=== PATIENT | female | born 1980 | race African-American/Black ===

== ENCOUNTER 2017-06-16 10:12 | Inpatient (IN) | payer OTHER ==
[2017-06-16 10:25] VITALS: BMI 22.6
--- NOTE | 2017-06-16 13:56 | HP ---
COWS - Scale Resting Pulse: 0= [place] 80 or Below Sweatin= Chills/Flushing Restless Observation: 3= Extraneous Movement Pupil Size: 1= Pupils >than Normal Bone or Joint Aches: 2= Severe Diffuse Aches Runny Nose/ Eye Tearin= Runny Nose/Eyes GI Upset > 30mins: 3= Vomiting/Diarrhea Tremor Observation: 2= Slight Tremor Visible Yawning Observation: 1= 1-2x During Session Anxiety or Irritability: 2=Irritable/Anxious Goose Flesh Skin: 0=Smooth Skin COWS Score: 17 Admission ROS S - HPI Chief Complaint: i need help to stop using heroin and crack Allergies/Adverse Reactions: Allergies Allergy/AdvReac Type Severity Reaction Status Date / Time No Known Allergies Allergy Verified 06/16/17 11:40 History of Present Illness: this 37 years old female with heroin and crack dependence seeking detox, withdrawal symptom,has been in outpatient program,non compliance with suboxone,did not follow up with [facility] redness of conjunctiva with discharge for 3 days no dm,no htn,no hepatitis c weight loss longest sobriety 5 months - Ebola screening Have you traveled outside of the country in the last 21 days: No Have you had contact with anyone from an Ebola affected area: No Have you been sick,other than usual withdrawal symptoms: No Do you have a fever: No - Review of Systems Constitutional: Chills, Loss of Appetite, Malaise, Night Sweats, Changes in sleep, Weakness, Unintentional Wgt. Loss EENT: reports: Tearing (redness of conjunctive with yellowish discharge), Nose Congestion Respiratory: reports: No Symptoms reported Cardiac: reports: No Symptoms Reported GI: reports: Nausea, Vomiting, Abdominal cramping : reports: No Symptoms Reported Musculoskeletal: reports: Back Pain, Joint Pain, Muscle Pain, Joint Stiffness Integumentary: reports: Dryness Neuro: reports: Headache, Tremors Endocrine: reports: No Symptoms Reported Hematology: reports: No Symptoms Reported Psychiatric: reports: No Sypmtoms Reported, Judgement Intact, Mood/Affect Appropiate Other Systems: Reviewed and Negative Patient History - Patient Medical History Hx Anemia: No Hx Asthma: No Hx Chronic Obstructive Pulmonary Disease (COPD): No Hx Cancer: No Hx Cardiac Disorders: No Hx Congestive Heart Failure: No Hx Hypertension: No Hx Hypercholesterolemia: No Hx Pacemaker: No HX Cerebrovascular Accident: No Hx Seizures: No Hx Dementia: No Hx Diabetes: No Hx Gastrointestinal Disorders: No Hx Liver Disease: No Hx Genitourinary Disorders: No Hx Sexually Transmitted Disorders: No Hx Renal Disease (ESRD): No Hx Thyroid Disease: No Hx Human Immunodeficiency Virus (HIV): No (04/27 last negative) Hx Hepatitis C: No Hx Depression: No Hx Suicide Attempt: No Hx Bipolar Disorder: No Hx Schizophrenia: No Other Medical History: no suicidal,no homicidal - Patient Surgical History Past Surgical History: No - PPD History Previous Implant?: Yes Documented Results: Negative w/o proof Implanted On Prior [facility] Admission?: No PPD to be Administered?: Yes - Reproductive History Patient is a Female of Child Bearing Age (11 -55 yrs old): Yes Last Menstrual Period: 06/02/17 Patient : No - Smoking Cessation Smoking history: Current every day smoker Have you smoked in the past 12 months: Yes Aproximately how many cigarettes per day: 10 Hx Chewing Tobacco Use: No Initiated information on smoking cessation: Yes 'Breaking Loose' booklet given: 06/16/17 - Substance & Tx. History Hx Alcohol Use: No Hx Substance Use: Yes Substance Use Type: Cocaine, Heroin Hx Substance Use Treatment: No - Substances Abused Heroin Route: Inhalation Frequency: Daily Amount used: 10 BAGS Age of first use: 30 Date of Last Use: 06/16/17 Crack Route: Smoking Frequency: Daily Amount used: $50 Age of first use: 30 Date of Last Use: 06/16/17 Family Disease History - Family Disease History Family Disease History: Other: Father (use heroin), Mother (uses heroin), Brother (two, healthy), Son (one age 16 - history) Admission Physical Exam BHS - Vital Signs Vital Signs: Vital Signs - 24 hr 06/16/17 10:23 Temperature 99.0 F Pulse Rate 76 Respiratory 18 Rate Blood Pressure 124/80 - Physical General Appearance: Yes: Moderate Distress, Tremorous, Irritable, Sweating, Anxious HEENTM: Yes: Pharynx Normal, Other (redness of conjunctiva with yellowish discharge) Respiratory: Yes: Lungs Clear, Normal Breath Sounds, No Respiratory Distress Neck: Yes: Supple, Trachea in good position, Thyroid tenderness Breast: Yes: Breast Exam Deferred Cardiology: Yes: Within Normal Limits, Regular Rhythm, Regular Rate, S1, S2 Abdominal: Yes: Within Normal Limits, Normal Bowel Sounds, Soft Genitourinary: Yes: Within Normal Limits Back: Yes: Muscle Spasm Musculoskeletal: Yes: full range of Motion, Back pain, Joint Stiffness, Muscle Pain Extremities: Yes: Tremors Neurological: Yes: manufacturing chief engineer II-XII NML intact, Fully Oriented, Alert, Motor Strength 5/5 Integumentary: Yes: Dry Lymphatic: Yes: Within Normal Limits - Diagnostic (1) Opioid dependence with withdrawal Current Visit: Yes Status: Acute (2) Cocaine dependence Current Visit: No Status: Chronic Qualifiers: Substance use status: uncomplicated Qualified Code(s): F14.20 - Cocaine dependence, uncomplicated (3) Nicotine dependence Current Visit: No Status: Chronic Cleared for Admission [facility] - Detox or Rehab [facility] Level of Care: Medically Managed Detox Regimen/Protocol: Methadone [facility] Breath Alcohol Content Breath Alcohol Content: 0 Urine Pregancy Test - Result Urine Test Results: Negative- NO Line Present Urine Drug Screen - Results Drug Screen Negative: No Urine Drug Screen Results: CONSUELO-Cocaine, OPI-Opiates
[2017-06-16] MEDS ORDERED: hydrOXYzine PAMOATE 25 MG CAPSULE (FP) PO PRN (14:18)
[2017-06-16] MEDS ORDERED: ACETAMINOPHEN 325 MG TABLET (FP) PO PRN (14:18)
[2017-06-16] MEDS ORDERED: MAGNESIUM CITRATE 300 ML BOTTLE PO PRN (14:18)
[2017-06-16] MEDS ORDERED: LOPERAMIDE HCL 2 MG CAPSULE PO PRN (14:18)
[2017-06-16] MEDS ORDERED: IBUPROFEN 400 MG TABLET (FP) PO PRN (14:18)
[2017-06-16] MEDS ORDERED: MAG HYDROX/AL HYDROX/SIMETH 30 ML UNIT-DOSE CUP PO PRN (14:18)
[2017-06-16] MEDS ORDERED: guaiFENesin/D-METHORPHAN HB 10 ML UNIT-DOSE CUPS PO PRN (14:18)
[2017-06-16] MEDS ORDERED: MAGNESIUM HYDROX 2400MG/30ML ORAL SUSPENSION 30 ML CUP PO PRN (14:18)
[2017-06-16] MEDS ORDERED: MENTHOL/PHENOL 1 EACH UD MM PRN (14:18)
[2017-06-16] MEDS ORDERED: P-EPHED 60MG/TRIPROLIDI 2.5MG TABLET PO PRN (14:18)
[2017-06-16] MEDS ORDERED: METHADONE HCL 10 MG TABLET (FOR DETOX USE ONLY) PO ONE ×2 (15:00→23:00)
[2017-06-16] MEDS ORDERED: METHADONE HCL 10 MG TABLET (FOR DETOX USE ONLY) ONE (18:37)
[2017-06-16] MEDS: diazePAM 5 MG TABLET PO PRN (19:15)
[2017-06-16] MEDS: NICOTINE 21 MG/24 HOURS TOPICAL PATCH TD SCH (19:24)
[2017-06-16] MEDS: CIPROFLOXACIN HCL 0.3% OPHTH 2.5ML BOTTLE OU SCH ×2 (20:35→22:18)
[2017-06-16] MEDS ORDERED: MELATONIN 5 MG TABLETS PO PRN (22:00)
[2017-06-16] MEDS: THIAMINE HCL 100 MG TABLET (FP) PO SCH (22:17)
[2017-06-16 23:19] LABS: URINE APPEARANCE SLCLOUDY; URINE BILIRUBIN NEGATIVE (<2.0 mg/dL); URINE COLOR YELLOW; URINE GLUCOSE (UA) NEGATIVE (NEGATIVE); URINE KETONE NEGATIVE (NEGATIVE); URINE NITRITE NEGATIVE (NEGATIVE); URINE PROTEIN NEGATIVE (NEGATIVE); URINE UROBILINOGEN NEGATIVE mg/dL (0.2-1.0)
[2017-06-16 23:20] LABS: URINE LEUK ESTERASE 1+ (NEGATIVE)
[2017-06-16 23:23] LABS: EPI CELLS FEW /HPF (FEW); URINE MUCUS RARE
[2017-06-17] MEDS: CIPROFLOXACIN HCL 0.3% OPHTH 2.5ML BOTTLE OU SCH ×5 (06:20→22:10)
--- NOTE | 2017-06-17 09:36 | CONSULT ---
[facility] Psychiatric Consult - Data Date of interview: 06/17/17 Admission source: [facility] Identifying data: Patient is a 37 year old single female, domiciled, mother of one, unemployed but receiving public assistance. This is one of multiple admissions for patient. Pt. admitted to for opiate and cocaine dependence. Substance Abuse History: Following information confirmed with Ms. Wilson: - Smoking Cessation. Smoking history: Current every day smoker. Have you smoked in the past 12 months: Yes. Aproximately how many cigarettes per day: 10. Hx Chewing Tobacco Use: No. Initiated information on smoking cessation: Yes. ' Breaking Loose' booklet given: 06/16/17. - Substance & Tx. History. Hx Alcohol Use: No. Hx Substance Use: Yes. Substance Use Type: Cocaine, Heroin. Hx Substance Use Treatment: No. - Substances Abused. Heroin. Route: Inhalation. Frequency: Daily. Amount used: 10 BAGS. Age of first use: 30. Date of Last Use: 06/16/17. Crack. Route: Smoking. Frequency: Daily. Amount used: $50. Age of first use: 30. Date of Last Use: 06/16/17 Medical History: Denies. Psychiatric History: Patient denies h/o psychiatric hospitalizations, outpatient care, and suicide attempt. Physical/Sexual Abuse/Trauma History: Denies. Mental Status Exam - Mental Status Exam Alert and Oriented to: Time, Place, Person Cognitive Function: Good Patient Appearance: Well Groomed Mood: Withdrawn, Irritable Affect: Mood Congruent Patient Behavior: Fatigued, Asleep (Patient able to be awaken to complete interview. ) Speech Pattern: Delayed Voice Loudness: Moderately Soft/Quiet Thought Process: Intact, Goal Oriented Thought Disorder: Not Present Hallucinations: Denies Suicidal Ideation: Denies Homicidal Ideation: Denies Insight/Judgement: Poor Sleep: Poorly Appetite: Fair Muscle strength/Tone: Normal Gait/Station: Other (Did not observe patient's gait.) Psychiatric Findings - Problem List ([place] 1, 2,3) (1) Opioid dependence with withdrawal Current Visit: Yes Status: Acute (2) Cocaine dependence Current Visit: Yes Status: Chronic Qualifiers: Substance use status: uncomplicated Qualified Code(s): F14.20 - Cocaine dependence, uncomplicated (3) Nicotine dependence Current Visit: Yes Status: Chronic (4) Insomnia Current Visit: Yes Status: Acute - Initial Treatment Plan Initial Treatment Plan: Psychoeducation provided. Detoxification in progress. Ambien 5mg qhs prn ordered for insomnia. Pt made aware of the risk of parasomnia. Verbal consent given. Will continue to monitor.
--- NOTE | 2017-06-17 09:52 | EKG ---
Test Reason : Blood Pressure : / mmHG Vent. Rate : 062 BPM Atrial Rate : 062 BPM P-R Int : 128 ms QRS Dur : 080 ms QT Int : 404 ms P-R-T Axes : 064 055 034 degrees QTc Int : 410 ms NORMAL SINUS RHYTHM NORMAL ECG NO PREVIOUS ECGS AVAILABLE Confirmed by MD Shlomo, Antonio ([id number]) on 06/17/2017 9:52:17 AM Referred By: Confirmed By:Antonio Keenan MD
[2017-06-17] MEDS ORDERED: METHADONE HCL 10 MG TABLET (FOR DETOX USE ONLY) PO ONE (10:00)
[2017-06-17 10:01] LABS: HEMATOCRIT 35.6 % (32.4-45.2); HEMOGLOBIN 12.1 GM/dL (10.7-15.3); MCHC 33.9 g/dl (32.0-36.0); MEAN CELL VOLUME 91.5 fl (80-96); MEAN PLT VOLUME 8.5 fl (7.5-11.1); PLATELET COUNT 279 K/MM3 (134-434); RBC 3.89 M/mm3 (3.60-5.2); RDW 12.4 % (11.6-15.6); WHITE BLOOD COUNT 5.3 K/mm3 (4.0-10.0)
[2017-06-17 10:04] LABS: CHLORIDE 107 mmol/L (98-107); POTASSIUM 4.9 mmol/L (3.5-5.1); SODIUM 141 mmol/L (136-145)
[2017-06-17] MEDS: PRENATAL VITAMINS W/ FOLIC ACID TABLET (FP) PO SCH (10:15)
[2017-06-17] MEDS: diazePAM 5 MG TABLET PO PRN ×2 (10:15→22:09)
[2017-06-17] MEDS: NICOTINE 21 MG/24 HOURS TOPICAL PATCH TD SCH (10:16)
[2017-06-17 10:55] LABS: ALBUMIN 3.7 g/dl (3.4-5.0); ALK PHOS 54 U/L (45-117); ANION GAP 5 (8-16); BILIRUBIN,TOTAL 0.5 mg/dL (0.2-1.0); BLOOD UREA NITROGEN 6 mg/dL (7-18); CALCIUM 8.8 mg/dL (8.5-10.1); CO2 29 mmol/L (21-32); GLUCOSE,RANDOM 84 mg/dL (74-106); SGOT/AST 19 U/L (15-37); SGPT/ALT 22 U/L (12-78); TOT PROT 6.8 g/dl (6.4-8.2)
--- NOTE | 2017-06-17 11:02 | PN ---
BHS COWS - Scale Resting Pulse: 0= [place] 80 or Below Sweatin= Chills/Flushing Restless Observation: 1= Difficult to Sit Still Pupil Size: 1= Pupils >than Normal Bone or Joint Aches: 2= Severe Diffuse Aches Runny Nose/ Eye Tearin= Runny Nose/Eyes GI Upset > 30mins: 2= Nausea/Diarrhea Tremor Observation of Outstretched Hands: 2= Slight Tremor Visible Yawning Observation: 2= >3x During Session Anxiety or Irritability: 2=Irritable/Anxious Goose Flesh Skin: 0=Smooth Skin COWS Score: 15 S Progress Note (SOAP) Subjective: joint pain body aches gi distress sweat tremor Objective: 06/17/17 10:59 Vital Signs Temperature 98.1 F 06/17/17 09:35 Pulse Rate 61 06/17/17 09:35 Respiratory Rate 20 06/17/17 09:35 Blood Pressure 113/55 06/17/17 09:35 O2 Sat by Pulse Oximetry (%) Laboratory Last Values WBC 5.3 K/mm3 (4.0-10.0) 06/17/17 06:00 RBC 3.89 M/mm3 (3.60-5.2) 06/17/17 06:00 Hgb 12.1 GM/dL (10.7-15.3) 06/17/17 06:00 Hct 35.6 % (32.4-45.2) 06/17/17 06:00 MCV 91.5 fl (80-96) 06/17/17 06:00 MCH 31.0 pg (25.7-33.7) 06/17/17 06:00 MCHC 33.9 g/dl (32.0-36.0) 06/17/17 06:00 RDW 12.4 % (11.6-15.6) 06/17/17 06:00 Plt Count 279 K/MM3 (134-434) 06/17/17 06:00 MPV 8.5 fl (7.5-11.1) 06/17/17 06:00 Sodium 141 mmol/L (136-145) 06/17/17 06:00 Potassium 4.9 mmol/L (3.5-5.1) 06/17/17 06:00 Chloride 107 mmol/L (98-107) 06/17/17 06:00 Carbon Dioxide 29 mmol/L (21-32) 06/17/17 06:00 Anion Gap 5 (8-16) L 06/17/17 06:00 BUN 6 mg/dL (7-18) L 06/17/17 06:00 Creatinine 1.0 mg/dL (0.55-1.02) 06/17/17 06:00 Creat Clearance w eGFR > 60 (>60) 06/17/17 06:00 Random Glucose 84 mg/dL (74-106) 06/17/17 06:00 Calcium 8.8 mg/dL (8.5-10.1) 06/17/17 06:00 Total Bilirubin 0.5 mg/dL (0.2-1.0) 06/17/17 06:00 AST 19 U/L (15-37) 06/17/17 06:00 ALT 22 U/L (12-78) 06/17/17 06:00 Alkaline Phosphatase 54 U/L (45-117) 06/17/17 06:00 Total Protein 6.8 g/dl (6.4-8.2) 06/17/17 06:00 Albumin 3.7 g/dl (3.4-5.0) 06/17/17 06:00 Urine Color Yellow 06/16/17 18:17 Urine Appearance Slcloudy 06/16/17 18:17 Urine pH 6.0 (5.0-8.0) 06/16/17 18:17 Ur Specific [place] 1.020 (1.001-1.035) 06/16/17 18:17 Urine Protein Negative (NEGATIVE) 06/16/17 18:17 Urine Glucose (UA) Negative (NEGATIVE) 06/16/17 18:17 Urine Ketones Negative (NEGATIVE) 06/16/17 18:17 Urine Blood 1+ (NEGATIVE) H 06/16/17 18:17 Urine Nitrite Negative (NEGATIVE) 06/16/17 18:17 Urine Bilirubin Negative (<2.0 mg/dL) 06/16/17 18:17 Urine Urobilinogen Negative mg/dL (0.2-1.0) 06/16/17 18:17 Ur Leukocyte Esterase 1+ (NEGATIVE) H 06/16/17 18:17 Urine WBC (Auto) 27 /hpf (3-5) 06/16/17 18:17 Urine RBC (Auto) 15 /hpf (0-3) 06/16/17 18:17 Ur Epithelial Cells Few /HPF (FEW) 06/16/17 18:17 Urine Mucus Rare 06/16/17 18:17 lab noted repeat ua Assessment: 06/17/17 11:01 withdrawal sx Plan: continue detox
[2017-06-17] MEDS ORDERED: ZOLPIDEM TARTRATE 5 MG TABLET PO PRN (22:00)
[2017-06-17] MEDS: THIAMINE HCL 100 MG TABLET (FP) PO SCH (22:09)
[2017-06-18 00:38] LABS: URINE APPEARANCE TURBID; URINE BILIRUBIN NEGATIVE (<2.0 mg/dL); URINE COLOR AMBER; URINE GLUCOSE (UA) NEGATIVE (NEGATIVE); URINE KETONE NEGATIVE (NEGATIVE); URINE LEUK ESTERASE 1+ (NEGATIVE); URINE NITRITE NEGATIVE (NEGATIVE); URINE PROTEIN NEGATIVE (NEGATIVE)
[2017-06-18 00:44] LABS: EPI CELLS MANY /HPF (FEW); URINE BACTERIA MANY /hpf (NONE SEEN); URINE MUCUS RARE
[2017-06-18] MEDS: CIPROFLOXACIN HCL 0.3% OPHTH 2.5ML BOTTLE OU SCH ×5 (06:48→22:16)
[2017-06-18] MEDS ORDERED: METHADONE HCL 5 MG TABLET (FOR DETOX USE ONLY) PO ONE (10:00)
[2017-06-18] MEDS: PRENATAL VITAMINS W/ FOLIC ACID TABLET (FP) PO SCH (10:27)
[2017-06-18] MEDS: diazePAM 5 MG TABLET PO PRN ×3 (10:27→20:17)
--- NOTE | 2017-06-18 10:53 | PN ---
BHS COWS - Scale Resting Pulse: 0= [place] 80 or Below Sweatin= Chills/Flushing Restless Observation: 1= Difficult to Sit Still Pupil Size: 1= Pupils >than Normal Bone or Joint Aches: 2= Severe Diffuse Aches Runny Nose/ Eye Tearin= Nasal Congestion GI Upset > 30mins: 1= Stomach Cramp Tremor Observation of Outstretched Hands: 2= Slight Tremor Visible Yawning Observation: 2= >3x During Session Anxiety or Irritability: 2=Irritable/Anxious Goose Flesh Skin: 0=Smooth Skin COWS Score: 13 BHS Progress Note (SOAP) Subjective: joint pain body ache sweat tremor anxiety scratch self with nails Objective: 06/18/17 10:53 Vital Signs Temperature 98.2 F 06/18/17 09:17 Pulse Rate 58 L 06/18/17 09:17 Respiratory Rate 17 06/18/17 09:17 Blood Pressure 120/71 06/18/17 09:17 O2 Sat by Pulse Oximetry (%) Laboratory Last Values WBC 5.3 K/mm3 (4.0-10.0) 06/17/17 06:00 RBC 3.89 M/mm3 (3.60-5.2) 06/17/17 06:00 Hgb 12.1 GM/dL (10.7-15.3) 06/17/17 06:00 Hct 35.6 % (32.4-45.2) 06/17/17 06:00 MCV 91.5 fl (80-96) 06/17/17 06:00 MCH 31.0 pg (25.7-33.7) 06/17/17 06:00 MCHC 33.9 g/dl (32.0-36.0) 06/17/17 06:00 RDW 12.4 % (11.6-15.6) 06/17/17 06:00 Plt Count 279 K/MM3 (134-434) 06/17/17 06:00 MPV 8.5 fl (7.5-11.1) 06/17/17 06:00 Sodium 141 mmol/L (136-145) 06/17/17 06:00 Potassium 4.9 mmol/L (3.5-5.1) 06/17/17 06:00 Chloride 107 mmol/L (98-107) 06/17/17 06:00 Carbon Dioxide 29 mmol/L (21-32) 06/17/17 06:00 Anion Gap 5 (8-16) L 06/17/17 06:00 BUN 6 mg/dL (7-18) L 06/17/17 06:00 Creatinine 1.0 mg/dL (0.55-1.02) 06/17/17 06:00 Creat Clearance w eGFR > 60 (>60) 06/17/17 06:00 Random Glucose 84 mg/dL (74-106) 06/17/17 06:00 Calcium 8.8 mg/dL (8.5-10.1) 06/17/17 06:00 Total Bilirubin 0.5 mg/dL (0.2-1.0) 06/17/17 06:00 AST 19 U/L (15-37) 06/17/17 06:00 ALT 22 U/L (12-78) 06/17/17 06:00 Alkaline Phosphatase 54 U/L (45-117) 06/17/17 06:00 Total Protein 6.8 g/dl (6.4-8.2) 06/17/17 06:00 Albumin 3.7 g/dl (3.4-5.0) 06/17/17 06:00 Urine Color [place] 06/17/17 14:00 Urine Appearance Turbid 06/17/17 14:00 Urine pH 5.0 (5.0-8.0) 06/17/17 14:00 Ur Specific [place] 1.025 (1.001-1.035) 06/17/17 14:00 Urine Protein Negative (NEGATIVE) 06/17/17 14:00 Urine Glucose (UA) Negative (NEGATIVE) 06/17/17 14:00 Urine Ketones Negative (NEGATIVE) 06/17/17 14:00 Urine Blood Negative (NEGATIVE) 06/17/17 14:00 Urine Nitrite Negative (NEGATIVE) 06/17/17 14:00 Urine Bilirubin Negative (<2.0 mg/dL) 06/17/17 14:00 Urine Urobilinogen 2.0 mg/dL (0.2-1.0) H 06/17/17 14:00 Ur Leukocyte Esterase 1+ (NEGATIVE) H 06/17/17 14:00 Urine WBC (Auto) 26 /hpf (3-5) 06/17/17 14:00 Urine RBC (Auto) 7 /hpf (0-3) 06/17/17 14:00 Ur Epithelial Cells Many /HPF (FEW) 06/17/17 14:00 Urine Bacteria Many /hpf (NONE SEEN) 06/17/17 14:00 Urine Mucus Rare 06/17/17 14:00 RPR Titer Nonreactive (NONREACTIVE) 06/17/17 06:00 HIV 1&2 Antibody Screen Preliminary positive 06/16/17 14:00 HIV P24 Antigen Negative 06/16/17 14:00 lab noted 06/18/17 10:54 uti Assessment: 06/18/17 10:54 withdrawal sx uti Plan: continue detox bactrim ds bid
[2017-06-18] MEDS: NICOTINE 21 MG/24 HOURS TOPICAL PATCH TD SCH (11:19)
[2017-06-18] MEDS: BACITRACIN 0.9 GM PACKET TP SCH ×3 (13:19→22:48)
[2017-06-18] MEDS: SULFAMETHOXAZOLE/TRIMETHOPRIM 800MG/160MG D.S. TABLET PO SCH ×2 (13:19→22:16)
--- NOTE | 2017-06-18 13:59 | PN ---
Psychiatric Progress Note Vital Signs: Vital Signs Period Temp Pulse Resp BP Sys/Sheth Pulse Ox Last 24 Hr 97.2 F-99.7 F 52-80 16-18 112-147/52-76 Date of Session: 06/18/17 Chief Complaint:: "I have really bad anxiety and i can't sleep." HPI: Pt. admitted to for opiate and cocaine dependence ROS: Unremarkable. Current Medications: Active Medications Generic Name Dose Route Start Last Admin Trade Name Simi PRN Reason Stop Dose Admin Acetaminophen 650 mg 06/16/17 14:18 Tylenol - PO Q4H PRN FEVER Al Hydroxide/Mg Hydroxide 30 ml 06/16/17 14:18 Mylanta Oral Suspension - PO Q6H PRN DYSPEPSIA Bacitracin 0.9 gm 06/18/17 14:00 06/18/17 13:19 Bacitracin - TP 0.9 gm QID JANIS Administration Ciprofloxacin 2 drop 06/16/17 18:00 06/18/17 13:21 Ciloxan 0.3% Eye Drops - OU 2 drop Q4HWA JANIS Administration Diazepam 10 mg 06/16/17 14:18 06/18/17 10:27 Valium - PO 06/19/17 14:17 10 mg Q4H PRN Administration WITHDRAWAL(CONT SUBST) Eucalyptus/Menthol/Phenol/Sorbitol 1 each 06/16/17 14:18 Cepastat Lozenge - MM Q4H PRN SORE THROAT Guaifenesin 10 ml 06/16/17 14:18 Robitussin Dm - PO Q6H PRN COUGH Hydroxyzine Pamoate 25 mg 06/16/17 14:18 06/18/17 13:54 Vistaril - PO 25 mg Q4H PRN Administration AGITATION Ibuprofen 400 mg 06/16/17 14:18 Motrin - PO Q6H PRN PAIN LEVEL 4-6 Loperamide HCl 4 mg 06/16/17 14:18 Imodium - PO Q6H PRN DIARRHEA Magnesium Citrate 300 ml 06/16/17 14:18 Citroma - PO Q48H PRN CONSTIPATION Magnesium Hydroxide 30 ml 06/16/17 14:18 Milk Of Magnesia - PO DAILY PRN CONSTIPATION Methadone HCl 5 mg 06/21/17 06:00 Dolophine - PO 06/21/17 06:01 ONCE@0600 ONE Methadone HCl 15 mg 06/19/17 10:00 Dolophine - PO 06/19/17 10:01 ONCE ONE Methadone HCl 10 mg 06/20/17 10:00 Dolophine - PO 06/20/17 10:01 ONCE ONE Nicotine 21 mg 06/16/17 15:00 06/18/17 11:19 Nicoderm Patch - TD Not Given DAILY JANIS Multivit/Folic Acid/Iron 1 tab 06/17/17 10:00 06/18/17 10:27 Vitamins ([facility]) - PO 1 tab DAILY JANIS Administration Pseudoephedrine/Triprolidine 1 combo 06/16/17 14:18 Actifed - PO TID PRN NASAL CONGESTION Thiamine HCl 100 mg 06/16/17 22:00 06/17/17 22:09 Vitamin B1 - PO 100 mg HS JANIS Administration Trimethoprim/Sulfamethoxazole 1 each 06/18/17 12:45 06/18/17 13:19 Bactrim Ds - PO 1 each BID JANIS Administration Zolpidem Tartrate 10 mg 06/18/17 22:00 Ambien - PO 06/20/17 21:59 HS PRN INSOMNIA Medication(s) Change(s): Yes. Will increase ambien to 10mg Current Side Effect: No Lab tests ordered: No Lab tests reviewed: Yes Provider note:: Migration Agent met with patient concering psychiatric reconsultation. Pt. upset about relapsing on cocaine and heroin. States she was living with her mother but is no longer allowed to return to her mother's home and is now having an increase of anxiety. Despite c/o increase in anxiety, patient is able to realize that returning to her mother's home is not the best option due to constant drug use that takes place inside of her mother's home. Psychoeducation provided. Patient also reports difficulty sleeping. Pt. able to accept ambien 5mg last night but continues to report poor sleep. Ambien to be increased to 10mg tonight. Patient also informed that vistaril is available and is encouraged to accept medication when her anxiety increases. Patient satisified and receptive to feedback. Will continue to monitor. Total face to face time:: 25 Mental Status Exam - Mental Status Exam Alert and Oriented to: Time, Place, Person Cognitive Function: Good Patient Appearance: Well Groomed Mood: Euthymic Affect: Mood Congruent Patient Behavior: Fatigued (Patient closing her eyes throughout conversation. ) Speech Pattern: Appropriate Voice Loudness: Normal Thought Process: Intact, Goal Oriented Thought Disorder: Not Present Hallucinations: Denies Suicidal Ideation: Denies Homicidal Ideation: Denies Insight/Judgement: Poor Sleep: Poorly Appetite: Fair Muscle strength/Tone: Normal Gait/Station: Normal Psychiatric Treatment Plan - Problem List (1) Opioid dependence with withdrawal Current Visit: Yes (2) Cocaine dependence Current Visit: Yes Qualifiers: Substance use status: uncomplicated Qualified Code(s): F14.20 - Cocaine dependence, uncomplicated (3) Nicotine dependence Current Visit: Yes (4) Insomnia Current Visit: Yes
--- NOTE | 2017-06-18 16:08 | PN ---
[facility] Progress Note Note: treatment team of medical provider, HIV specialist, nurse discuss preliminary positive with negative antigen patient appeared to be sad and frustrated, 1:1 observation for safety
[2017-06-18] MEDS ORDERED: QUEtiapine FUMARATE 50 MG TABLET PO ONE (17:00)
--- NOTE | 2017-06-18 17:13 | PN ---
Psychiatric Progress Note Vital Signs: Vital Signs Period Temp Pulse Resp BP Sys/Sheth Pulse Ox Last 24 Hr 97.2 F-98.2 F 52-80 16-18 112-127/52-71 Date of Session: 06/18/17 Chief Complaint:: "i'm not suicidal." HPI: Pt. admitted to for opiate and cocaine dependence ROS: Unremarkable. Current Medications: Active Medications Generic Name Dose Route Start Last Admin Trade Name Freq PRN Reason Stop Dose Admin Acetaminophen 650 mg 06/16/17 14:18 Tylenol - PO Q4H PRN FEVER Al Hydroxide/Mg Hydroxide 30 ml 06/16/17 14:18 Mylanta Oral Suspension - PO Q6H PRN DYSPEPSIA Bacitracin 0.9 gm 06/18/17 14:00 06/18/17 13:19 Bacitracin - TP 0.9 gm QID JANIS Administration Ciprofloxacin 2 drop 06/16/17 18:00 06/18/17 13:21 Ciloxan 0.3% Eye Drops - OU 2 drop Q4HWA JANIS Administration Diazepam 10 mg 06/16/17 14:18 06/18/17 15:23 Valium - PO 06/19/17 14:17 10 mg Q4H PRN Administration WITHDRAWAL(CONT SUBST) Eucalyptus/Menthol/Phenol/Sorbitol 1 each 06/16/17 14:18 Cepastat Lozenge - MM Q4H PRN SORE THROAT Guaifenesin 10 ml 06/16/17 14:18 Robitussin Dm - PO Q6H PRN COUGH Hydroxyzine Pamoate 25 mg 06/16/17 14:18 06/18/17 13:54 Vistaril - PO 25 mg Q4H PRN Administration AGITATION Ibuprofen 400 mg 06/16/17 14:18 Motrin - PO Q6H PRN PAIN LEVEL 4-6 Loperamide HCl 4 mg 06/16/17 14:18 Imodium - PO Q6H PRN DIARRHEA Magnesium Citrate 300 ml 06/16/17 14:18 Citroma - PO Q48H PRN CONSTIPATION Magnesium Hydroxide 30 ml 06/16/17 14:18 Milk Of Magnesia - PO DAILY PRN CONSTIPATION Methadone HCl 5 mg 06/21/17 06:00 Dolophine - PO 06/21/17 06:01 ONCE@0600 ONE Methadone HCl 15 mg 06/19/17 10:00 Dolophine - PO 06/19/17 10:01 ONCE ONE Methadone HCl 10 mg 06/20/17 10:00 Dolophine - PO 06/20/17 10:01 ONCE ONE Nicotine 21 mg 06/16/17 15:00 06/18/17 11:19 Nicoderm Patch - TD Not Given DAILY JANIS Multivit/Folic Acid/Iron 1 tab 06/17/17 10:00 06/18/17 10:27 Vitamins ([facility]) - PO 1 tab DAILY JANIS Administration Pseudoephedrine/Triprolidine 1 combo 06/16/17 14:18 Actifed - PO TID PRN NASAL CONGESTION Thiamine HCl 100 mg 06/16/17 22:00 06/17/17 22:09 Vitamin B1 - PO 100 mg HS JANIS Administration Trimethoprim/Sulfamethoxazole 1 each 06/18/17 12:45 06/18/17 13:19 Bactrim Ds - PO 1 each BID JANIS Administration Zolpidem Tartrate 10 mg 06/18/17 22:00 Ambien - PO 06/20/17 21:59 HS PRN INSOMNIA Medication(s) Change(s): Yes. one time dose of seroquel 50mg and vistaril increased to 50mg q4h Current Side Effect: No Lab tests ordered: No Lab tests reviewed: Yes Provider note:: Patient placed on 1:1 by PAULA Grace for safety after patient was informed that her preliminary blood exam for HIV was positive with negative antigen. Patient educated on her results by PAULA Grace and Ms. Chikis Nation who is the outreach clay shop supervisor at the [facility]. Cafe Or Restaurant Manager was called to further evaluate patient. Pt. reports feeling sad but states she has no thoughts or urges to hurt herself. States she has never hurt herself in the past and has never endorsed suicidal ideation. Patient's protective factor is her sixteen year old son who currently resides with his dad. Patient reports daily communication with her son and son's father. Patient states she can approach staff if she begins to have thoughts to hurt herself. One time dose of seroquel 50mg qhs to be ordered due to patient's increase anxiety and vistaril to be increased from 25mg to 50mg q4h. At this time patient does not need to be observed 1:1. 1:1 discontinued. Nursing staff made aware. Total face to face time:: 40 Mental Status Exam - Mental Status Exam Alert and Oriented to: Time, Place, Person Cognitive Function: Good Mood: Sad, Anxious Affect: Mood Congruent Patient Behavior: Crying (Tearful), Cooperative Speech Pattern: Appropriate Voice Loudness: Normal Thought Process: Intact, Goal Oriented Thought Disorder: Not Present Hallucinations: Denies Suicidal Ideation: Denies Homicidal Ideation: Denies Insight/Judgement: Poor Sleep: Poorly Appetite: Fair Muscle strength/Tone: Normal Gait/Station: Normal Psychiatric Treatment Plan - Problem List (1) Opioid dependence with withdrawal Current Visit: Yes (2) Cocaine dependence Current Visit: Yes Qualifiers: Substance use status: uncomplicated Qualified Code(s): F14.20 - Cocaine dependence, uncomplicated (3) Nicotine dependence Current Visit: Yes (4) Insomnia Current Visit: Yes
[2017-06-18] MEDS: hydrOXYzine PAMOATE 50 MG CAPSULE (FP) PO PRN (18:11)
[2017-06-18] MEDS: ZOLPIDEM TARTRATE 10 MG TABLET (PARK CARE ONLY) PO PRN (22:16)
[2017-06-18] MEDS: THIAMINE HCL 100 MG TABLET (FP) PO SCH (22:16)
[2017-06-19] MEDS: hydrOXYzine PAMOATE 50 MG CAPSULE (FP) PO PRN ×5 (00:52→22:06)
[2017-06-19] MEDS: CIPROFLOXACIN HCL 0.3% OPHTH 2.5ML BOTTLE OU SCH ×5 (05:52→22:05)
[2017-06-19] MEDS: diazePAM 5 MG TABLET PO PRN ×2 (05:53→10:31)
[2017-06-19] MEDS ORDERED: METHADONE HCL 5 MG TABLET (FOR DETOX USE ONLY) PO ONE (10:00)
[2017-06-19] MEDS: BACITRACIN 0.9 GM PACKET TP SCH ×4 (10:29→22:05)
[2017-06-19] MEDS: PRENATAL VITAMINS W/ FOLIC ACID TABLET (FP) PO SCH (10:30)
[2017-06-19] MEDS: SULFAMETHOXAZOLE/TRIMETHOPRIM 800MG/160MG D.S. TABLET PO SCH ×2 (10:30→22:05)
[2017-06-19] MEDS: NICOTINE 21 MG/24 HOURS TOPICAL PATCH TD SCH (10:32)
[2017-06-19] MEDS ORDERED: HALOPERIDOL 5 MG TABLET (FP) PO STA (11:20)
[2017-06-19] MEDS ORDERED: HALOPERIDOL 5 MG TABLET (FP) PO PRN (11:22)
--- NOTE | 2017-06-19 11:36 | PN ---
Psychiatric Progress Note Vital Signs: Vital Signs Period Temp Pulse Resp BP Sys/Sheth Pulse Ox Last 24 Hr 97.2 F-99.9 F 63-85 16-18 112-135/59-83 Date of Session: 06/19/17 Chief Complaint:: Anxiety, agitation HPI: Patient reports anxiety, agitation, asking for benzodiazepins, insomnia, irritability as well. Current Medications: Active Medications Generic Name Dose Route Start Last Admin Trade Name Freq PRN Reason Stop Dose Admin Acetaminophen 650 mg 06/16/17 14:18 Tylenol - PO Q4H PRN FEVER Al Hydroxide/Mg Hydroxide 30 ml 06/16/17 14:18 Mylanta Oral Suspension - PO Q6H PRN DYSPEPSIA Bacitracin 0.9 gm 06/18/17 14:00 06/19/17 10:29 Bacitracin - TP 0.9 gm QID JANIS Administration Ciprofloxacin 2 drop 06/16/17 18:00 06/19/17 10:29 Ciloxan 0.3% Eye Drops - OU 2 drop Q4HWA JANIS Administration Diazepam 10 mg 06/16/17 14:18 06/19/17 10:31 Valium - PO 06/19/17 14:17 10 mg Q4H PRN Administration WITHDRAWAL(CONT SUBST) Diphenhydramine HCl 50 mg 06/19/17 11:20 Benadryl - PO 06/19/17 11:21 ONCE STA Eucalyptus/Menthol/Phenol/Sorbitol 1 each 06/16/17 14:18 Cepastat Lozenge - MM Q4H PRN SORE THROAT Guaifenesin 10 ml 06/16/17 14:18 Robitussin Dm - PO Q6H PRN COUGH Haloperidol 1 mg 06/19/17 11:21 Haldol - PO 06/19/17 11:22 ONCE ONE Haloperidol 5 mg 06/19/17 11:22 Haldol - PO Q4HWA PRN AGITATION Hydroxyzine Pamoate 50 mg 06/18/17 17:26 06/19/17 10:34 Vistaril - PO 50 mg Q4H PRN Administration AGITATION Ibuprofen 400 mg 06/16/17 14:18 Motrin - PO Q6H PRN PAIN LEVEL 4-6 Loperamide HCl 4 mg 06/16/17 14:18 Imodium - PO Q6H PRN DIARRHEA Magnesium Citrate 300 ml 06/16/17 14:18 Citroma - PO Q48H PRN CONSTIPATION Magnesium Hydroxide 30 ml 06/16/17 14:18 Milk Of Magnesia - PO DAILY PRN CONSTIPATION Methadone HCl 5 mg 06/21/17 06:00 Dolophine - PO 06/21/17 06:01 ONCE@0600 ONE Methadone HCl 10 mg 06/20/17 10:00 Dolophine - PO 06/20/17 10:01 ONCE ONE Nicotine 21 mg 06/16/17 15:00 06/19/17 10:32 Nicoderm Patch - TD Not Given DAILY JANIS Multivit/Folic Acid/Iron 1 tab 06/17/17 10:00 06/19/17 10:30 Vitamins (Sjr) - PO 1 tab DAILY JANIS Administration Pseudoephedrine/Triprolidine 1 combo 06/16/17 14:18 Actifed - PO TID PRN NASAL CONGESTION Thiamine HCl 100 mg 06/16/17 22:00 06/18/17 22:16 Vitamin B1 - PO 100 mg HS JANIS Administration Trimethoprim/Sulfamethoxazole 1 each 06/18/17 12:45 06/19/17 10:30 Bactrim Ds - PO 1 each BID JANIS Administration Zolpidem Tartrate 10 mg 06/18/17 22:00 06/18/17 22:16 Ambien - PO 06/20/17 21:59 10 mg HS PRN Administration INSOMNIA Provider note:: Patient denies nsuicidal, homicidal ideations, reports withdrawal symptoms and severe agitation. rec: Haldol 5mg po stat. Benadryl 50mg po stat. Haldol 1mg po prn q4 for agitation Mental Status Exam - Mental Status Exam Alert and Oriented to: Person Cognitive Function: Fair Patient Appearance: Unkempt Mood: Anxious Affect: Mood Congruent Patient Behavior: Guarded Speech Pattern: Delayed Voice Loudness: Normal Thought Process: Goal Oriented Thought Disorder: Being Controlled Hallucinations: Denies Suicidal Ideation: Denies Homicidal Ideation: Denies Insight/Judgement: Fair Sleep: Difficulty falling asleep Appetite: Fair Muscle strength/Tone: Normal Gait/Station: Deferred Additional Comments: Haldol 5mg po stat. Benadryl 50mg po stat. Haldol 1mg po prn q4 for agitation Psychiatric Treatment Plan - Problem List (1) Drug-induced mood disorder Current Visit: Yes (2) Opioid dependence with withdrawal Current Visit: Yes (3) Cocaine dependence Current Visit: Yes Qualifiers: Substance use status: uncomplicated Qualified Code(s): F14.20 - Cocaine dependence, uncomplicated (4) Nicotine dependence Current Visit: Yes (5) Opioid dependence Current Visit: No Qualifiers: Substance use status: uncomplicated Qualified Code(s): F11.20 - Opioid dependence, uncomplicated Comment: start suboxone 4mg today - film not covered -will Rx tablets - safekeeping reviewed -counseled to allow to dissolve under tongue completely - continue to attend groups, avoid illicit drugs and alcohol Initial treatment plan: Haldol 5mg po stat. Benadryl 50mg po stat. Haldol 1mg po prn q4 for agitation
[2017-06-19] MEDS ORDERED: diphenhydrAMINE HCL 50 MG CAPSULE PO ONE (11:45)
[2017-06-19] MEDS ORDERED: HALOPERIDOL 1 MG TABLET (FP) PO ONE (11:45)
--- NOTE | 2017-06-19 12:24 | PN ---
[facility] Progress Note (SOAP) Subjective: joint pain body ache sweat tremor anxiety restlessness Objective: 06/19/17 12:21 Vital Signs Temperature 97.2 F L 06/19/17 09:30 Pulse Rate 78 06/19/17 09:30 Respiratory Rate 16 06/19/17 09:30 Blood Pressure 118/66 06/19/17 09:30 O2 Sat by Pulse Oximetry (%) Laboratory Last Values WBC 5.3 K/mm3 (4.0-10.0) 06/17/17 06:00 RBC 3.89 M/mm3 (3.60-5.2) 06/17/17 06:00 Hgb 12.1 GM/dL (10.7-15.3) 06/17/17 06:00 Hct 35.6 % (32.4-45.2) 06/17/17 06:00 MCV 91.5 fl (80-96) 06/17/17 06:00 MCH 31.0 pg (25.7-33.7) 06/17/17 06:00 MCHC 33.9 g/dl (32.0-36.0) 06/17/17 06:00 RDW 12.4 % (11.6-15.6) 06/17/17 06:00 Plt Count 279 K/MM3 (134-434) 06/17/17 06:00 MPV 8.5 fl (7.5-11.1) 06/17/17 06:00 Sodium 141 mmol/L (136-145) 06/17/17 06:00 Potassium 4.9 mmol/L (3.5-5.1) 06/17/17 06:00 Chloride 107 mmol/L (98-107) 06/17/17 06:00 Carbon Dioxide 29 mmol/L (21-32) 06/17/17 06:00 Anion Gap 5 (8-16) L 06/17/17 06:00 BUN 6 mg/dL (7-18) L 06/17/17 06:00 Creatinine 1.0 mg/dL (0.55-1.02) 06/17/17 06:00 Creat Clearance w eGFR > 60 (>60) 06/17/17 06:00 Random Glucose 84 mg/dL (74-106) 06/17/17 06:00 Calcium 8.8 mg/dL (8.5-10.1) 06/17/17 06:00 Total Bilirubin 0.5 mg/dL (0.2-1.0) 06/17/17 06:00 AST 19 U/L (15-37) 06/17/17 06:00 ALT 22 U/L (12-78) 06/17/17 06:00 Alkaline Phosphatase 54 U/L (45-117) 06/17/17 06:00 Total Protein 6.8 g/dl (6.4-8.2) 06/17/17 06:00 Albumin 3.7 g/dl (3.4-5.0) 06/17/17 06:00 Urine Color Jagr[place] 06/17/17 14:00 Urine Appearance Turbid 06/17/17 14:00 Urine pH 5.0 (5.0-8.0) 06/17/17 14:00 Ur Specific [place] 1.025 (1.001-1.035) 06/17/17 14:00 Urine Protein Negative (NEGATIVE) 06/17/17 14:00 Urine Glucose (UA) Negative (NEGATIVE) 06/17/17 14:00 Urine Ketones Negative (NEGATIVE) 06/17/17 14:00 Urine Blood Negative (NEGATIVE) 06/17/17 14:00 Urine Nitrite Negative (NEGATIVE) 06/17/17 14:00 Urine Bilirubin Negative (<2.0 mg/dL) 06/17/17 14:00 Urine Urobilinogen 2.0 mg/dL (0.2-1.0) H 06/17/17 14:00 Ur Leukocyte Esterase 1+ (NEGATIVE) H 06/17/17 14:00 Urine WBC (Auto) 26 /hpf (3-5) 06/17/17 14:00 Urine RBC (Auto) 7 /hpf (0-3) 06/17/17 14:00 Ur Epithelial Cells Many /HPF (FEW) 06/17/17 14:00 Urine Bacteria Many /hpf (NONE SEEN) 06/17/17 14:00 Urine Mucus Rare 06/17/17 14:00 RPR Titer Nonreactive (NONREACTIVE) 06/17/17 06:00 HIV-1 Antibody Positive (Negative) H 06/16/17 14:00 HIV-2 Antibody Negative (Negative) 06/16/17 14:00 HIV 1&2 Ag/Ab, 4th Gen Reactive (Non Reactive) H 06/16/17 14:00 HIV Note Hiv-1 positive (.) 06/16/17 14:00 HIV 1&2 Antibody Screen Preliminary positive 06/16/17 14:00 HIV P24 Antigen Negative 06/16/17 14:00 lab noted 06/19/17 12:23 uti Assessment: 06/19/17 12:23 withdrawal sx uti Plan: continue detox bactrim ds bid increase oral fluid
[2017-06-19] MEDS ORDERED: diphenhydrAMINE HCL 25 MG CAPSULE (FP) PO ONE (12:43)
[2017-06-19] MEDS ORDERED: QUEtiapine FUMARATE 100 MG TABLET (FP) PO SCH (15:45)
[2017-06-19] MEDS ORDERED: QUEtiapine FUMARATE 50 MG TABLET PO SCH (17:32)
[2017-06-19] MEDS: QUEtiapine FUMARATE 50 MG TABLET PO SCH ×2 (18:02→22:05)
[2017-06-19] MEDS ORDERED: HALOPERIDOL 1 MG TABLET (FP) PO PRN (19:37)
[2017-06-19] MEDS: ZOLPIDEM TARTRATE 10 MG TABLET (PARK CARE ONLY) PO PRN (22:06)
[2017-06-19] MEDS: THIAMINE HCL 100 MG TABLET (FP) PO SCH (22:06)
[2017-06-20] MEDS: hydrOXYzine PAMOATE 50 MG CAPSULE (FP) PO PRN ×2 (04:03→15:43)
[2017-06-20] MEDS: QUEtiapine FUMARATE 50 MG TABLET PO SCH ×2 (07:45→13:03)
[2017-06-20] MEDS: CIPROFLOXACIN HCL 0.3% OPHTH 2.5ML BOTTLE OU SCH ×4 (07:45→13:04)
[2017-06-20] MEDS ORDERED: METHADONE HCL 10 MG TABLET (FOR DETOX USE ONLY) PO ONE (10:00)
[2017-06-20] MEDS: SULFAMETHOXAZOLE/TRIMETHOPRIM 800MG/160MG D.S. TABLET PO SCH (10:34)
[2017-06-20] MEDS: PRENATAL VITAMINS W/ FOLIC ACID TABLET (FP) PO SCH (10:34)
[2017-06-20] MEDS: BACITRACIN 0.9 GM PACKET TP SCH ×2 (10:34→13:03)
[2017-06-20] MEDS: NICOTINE 21 MG/24 HOURS TOPICAL PATCH TD SCH (10:39)
--- NOTE | 2017-06-20 11:50 | PN ---
Psychiatric Progress Note Vital Signs: Vital Signs Period Temp Pulse Resp BP Sys/Sheth Pulse Ox Last 24 Hr 96.3 F-98.4 F 67-86 18-19 92-134/52-81 Date of Session: 06/20/17 Chief Complaint:: " What medications do i take." HPI: Pt. admitted to for opiate and cocaine dependence. ROS: Unremarkable. Current Medications: Active Medications Generic Name Dose Route Start Last Admin Trade Name Freq PRN Reason Stop Dose Admin Acetaminophen 650 mg 06/16/17 14:18 Tylenol - PO Q4H PRN FEVER Al Hydroxide/Mg Hydroxide 30 ml 06/16/17 14:18 Mylanta Oral Suspension - PO Q6H PRN DYSPEPSIA Bacitracin 0.9 gm 06/18/17 14:00 06/20/17 10:34 Bacitracin - TP 0.9 gm QID JANIS Administration Ciprofloxacin 2 drop 06/16/17 18:00 06/20/17 07:50 Ciloxan 0.3% Eye Drops - OU Not Given Q4HWA JANIS Eucalyptus/Menthol/Phenol/Sorbitol 1 each 06/16/17 14:18 Cepastat Lozenge - MM Q4H PRN SORE THROAT Guaifenesin 10 ml 06/16/17 14:18 Robitussin Dm - PO Q6H PRN COUGH Haloperidol 1 mg 06/19/17 19:37 06/20/17 10:56 Haldol - PO 1 mg Q4HWA PRN Administration AGITATION Hydroxyzine Pamoate 50 mg 06/18/17 17:26 06/20/17 04:03 Vistaril - PO 50 mg Q4H PRN Administration AGITATION Ibuprofen 400 mg 06/16/17 14:18 Motrin - PO Q6H PRN PAIN LEVEL 4-6 Loperamide HCl 4 mg 06/16/17 14:18 Imodium - PO Q6H PRN DIARRHEA Magnesium Citrate 300 ml 06/16/17 14:18 Citroma - PO Q48H PRN CONSTIPATION Magnesium Hydroxide 30 ml 06/16/17 14:18 Milk Of Magnesia - PO DAILY PRN CONSTIPATION Methadone HCl 5 mg 06/21/17 06:00 Dolophine - PO 06/21/17 06:01 ONCE@0600 ONE Nicotine 21 mg 06/16/17 15:00 06/20/17 10:39 Nicoderm Patch - TD 21 mg DAILY JANIS Administration Multivit/Folic Acid/Iron 1 tab 06/17/17 10:00 06/20/17 10:34 Vitamins (Sjr) - PO 1 tab DAILY JANIS Administration Pseudoephedrine/Triprolidine 1 combo 06/16/17 14:18 Actifed - PO TID PRN NASAL CONGESTION Quetiapine Fumarate 50 mg 06/19/17 18:00 06/20/17 07:45 Seroquel - PO Not Given TID JANIS Thiamine HCl 100 mg 06/16/17 22:00 06/19/17 22:06 Vitamin B1 - PO 100 mg HS JANIS Administration Trimethoprim/Sulfamethoxazole 1 each 06/18/17 12:45 06/20/17 10:34 Bactrim Ds - PO 1 each BID JANIS Administration Zolpidem Tartrate 10 mg 06/18/17 22:00 06/19/17 22:06 Ambien - PO 06/20/17 21:59 10 mg HS PRN Administration INSOMNIA Medication(s) Change(s): No. Current Side Effect: No Lab tests ordered: No Lab tests reviewed: Yes Provider note:: Patient requesting to speak to psychiatric nurse practitioner. Chart reviewed. Dr. Briones's note read and appreciated. Pt. irritable and restless. Requesting a list of her medications. Photolithographer able to sit with patient and discuss the clinical indications of the psychotrophic medications and at what times they are available for her to take. Pt. also encouraged to utilize her coping mechanism when her anxiety increases. Pt. satisifed and receptive to feedback. Will continue to monitor. Total face to face time:: 25 Mental Status Exam - Mental Status Exam Alert and Oriented to: Time, Place, Person Cognitive Function: Good Patient Appearance: Well Groomed Mood: Anxious, Irritable Affect: Mood Congruent Patient Behavior: Cooperative Speech Pattern: Appropriate Voice Loudness: Normal Thought Process: Intact, Goal Oriented Thought Disorder: Not Present, Paranoid Ideation Hallucinations: Denies Suicidal Ideation: Denies Homicidal Ideation: Denies Insight/Judgement: Poor Sleep: Fair Appetite: Fair Muscle strength/Tone: Normal Gait/Station: Normal Psychiatric Treatment Plan - Problem List (1) Opioid dependence with withdrawal Current Visit: Yes (2) Cocaine dependence Current Visit: Yes Qualifiers: Substance use status: uncomplicated Qualified Code(s): F14.20 - Cocaine dependence, uncomplicated (3) Nicotine dependence Current Visit: Yes (4) Insomnia Current Visit: Yes
--- NOTE | 2017-06-20 13:02 | PN ---
S Progress Note (SOAP) Subjective: feeling better no tremor less sweat tolerated food and fluid well social with peers in day room Objective: 06/20/17 12:44 Vital Signs Temperature 96.3 F L 06/20/17 09:25 Pulse Rate 67 06/20/17 09:25 Respiratory Rate 18 06/20/17 09:25 Blood Pressure 92/56 06/20/17 09:25 O2 Sat by Pulse Oximetry (%) Laboratory Last Values WBC 5.3 K/mm3 (4.0-10.0) 06/17/17 06:00 RBC 3.89 M/mm3 (3.60-5.2) 06/17/17 06:00 Hgb 12.1 GM/dL (10.7-15.3) 06/17/17 06:00 Hct 35.6 % (32.4-45.2) 06/17/17 06:00 MCV 91.5 fl (80-96) 06/17/17 06:00 MCH 31.0 pg (25.7-33.7) 06/17/17 06:00 MCHC 33.9 g/dl (32.0-36.0) 06/17/17 06:00 RDW 12.4 % (11.6-15.6) 06/17/17 06:00 Plt Count 279 K/MM3 (134-434) 06/17/17 06:00 MPV 8.5 fl (7.5-11.1) 06/17/17 06:00 Sodium 141 mmol/L (136-145) 06/17/17 06:00 Potassium 4.9 mmol/L (3.5-5.1) 06/17/17 06:00 Chloride 107 mmol/L (98-107) 06/17/17 06:00 Carbon Dioxide 29 mmol/L (21-32) 06/17/17 06:00 Anion Gap 5 (8-16) L 06/17/17 06:00 BUN 6 mg/dL (7-18) L 06/17/17 06:00 Creatinine 1.0 mg/dL (0.55-1.02) 06/17/17 06:00 Creat Clearance w eGFR > 60 (>60) 06/17/17 06:00 Random Glucose 84 mg/dL (74-106) 06/17/17 06:00 Calcium 8.8 mg/dL (8.5-10.1) 06/17/17 06:00 Total Bilirubin 0.5 mg/dL (0.2-1.0) 06/17/17 06:00 AST 19 U/L (15-37) 06/17/17 06:00 ALT 22 U/L (12-78) 06/17/17 06:00 Alkaline Phosphatase 54 U/L (45-117) 06/17/17 06:00 Total Protein 6.8 g/dl (6.4-8.2) 06/17/17 06:00 Albumin 3.7 g/dl (3.4-5.0) 06/17/17 06:00 Urine Color [place] 06/17/17 14:00 Urine Appearance Turbid 06/17/17 14:00 Urine pH 5.0 (5.0-8.0) 06/17/17 14:00 Ur Specific [place] 1.025 (1.001-1.035) 06/17/17 14:00 Urine Protein Negative (NEGATIVE) 06/17/17 14:00 Urine Glucose (UA) Negative (NEGATIVE) 06/17/17 14:00 Urine Ketones Negative (NEGATIVE) 06/17/17 14:00 Urine Blood Negative (NEGATIVE) 06/17/17 14:00 Urine Nitrite Negative (NEGATIVE) 06/17/17 14:00 Urine Bilirubin Negative (<2.0 mg/dL) 06/17/17 14:00 Urine Urobilinogen 2.0 mg/dL (0.2-1.0) H 06/17/17 14:00 Ur Leukocyte Esterase 1+ (NEGATIVE) H 06/17/17 14:00 Urine WBC (Auto) 26 /hpf (3-5) 06/17/17 14:00 Urine RBC (Auto) 7 /hpf (0-3) 06/17/17 14:00 Ur Epithelial Cells Many /HPF (FEW) 06/17/17 14:00 Urine Bacteria Many /hpf (NONE SEEN) 06/17/17 14:00 Urine Mucus Rare 06/17/17 14:00 RPR Titer Nonreactive (NONREACTIVE) 06/17/17 06:00 HIV-1 Antibody Positive (Negative) H 06/16/17 14:00 HIV-2 Antibody Negative (Negative) 06/16/17 14:00 HIV 1&2 Ag/Ab, 4th Gen Reactive (Non Reactive) H 06/16/17 14:00 HIV Note Hiv-1 positive (.) 06/16/17 14:00 HIV 1&2 Antibody Screen Preliminary positive 06/16/17 14:00 HIV P24 Antigen Negative 06/16/17 14:00 06/20/17 14:15 lab noted patient informed positive confirmatory Assessment: 06/20/17 14:16 transferred to [facility] recovery unit Plan: continue addiction treatment inpatient recovery
[2017-06-20 13:36] VITALS: BP 114/65; PULSE 62; TEMP 96.8
--- NOTE | 2017-06-20 13:46 | PN ---
[facility] Progress Note Note: 37 years old female hiv status confirmatory positive patient requested repeat hiv test case discussed with [facility] hiv specialist repeat hiv serum test additional t cell + viral load + drug resistance sensitivity + hepatitis b penal patient wants to wait for second hiv test results to begin ART case discussed with counselor that [facility] bed available today patient agrees to be transferred to rehab today case discussed with mental health specialist that the patient is no suicidal no homocidal continue monitoring hiv status as well as substance addiction recovery
--- NOTE | 2017-06-20 14:29 | DS ---
[facility] Detox Discharge Summary Admission Date: 06/16/17 Discharge Date: 06/20/17 - History Present History: Opioid Dependence Additional Comments: 37 years old female admitted on 06/16/17 for opioid withdrawal sx patient is doing well on opioid detox regimen newly discovered hiv positive patient requests repeat hiv blood work patient refused to stat ART at his time continue health teaching on HIV - Physical Exam Results Vital Signs: Vital Signs Temperature 96.8 F L 06/20/17 13:35 Pulse Rate 62 06/20/17 13:35 Respiratory Rate 18 06/20/17 13:35 Blood Pressure 114/65 06/20/17 13:35 O2 Sat by Pulse Oximetry (%) Pertinent Admission Physical Exam Findings: withdrawal sx Vital Signs Temperature 96.8 F L 06/20/17 13:35 Pulse Rate 62 06/20/17 13:35 Respiratory Rate 18 06/20/17 13:35 Blood Pressure 114/65 06/20/17 13:35 O2 Sat by Pulse Oximetry (%) Laboratory Last Values WBC 5.3 K/mm3 (4.0-10.0) 06/17/17 06:00 RBC 3.89 M/mm3 (3.60-5.2) 06/17/17 06:00 Hgb 12.1 GM/dL (10.7-15.3) 06/17/17 06:00 Hct 35.6 % (32.4-45.2) 06/17/17 06:00 MCV 91.5 fl (80-96) 06/17/17 06:00 MCH 31.0 pg (25.7-33.7) 06/17/17 06:00 MCHC 33.9 g/dl (32.0-36.0) 06/17/17 06:00 RDW 12.4 % (11.6-15.6) 06/17/17 06:00 Plt Count 279 K/MM3 (134-434) 06/17/17 06:00 MPV 8.5 fl (7.5-11.1) 06/17/17 06:00 Sodium 141 mmol/L (136-145) 06/17/17 06:00 Potassium 4.9 mmol/L (3.5-5.1) 06/17/17 06:00 Chloride 107 mmol/L (98-107) 06/17/17 06:00 Carbon Dioxide 29 mmol/L (21-32) 06/17/17 06:00 Anion Gap 5 (8-16) L 06/17/17 06:00 BUN 6 mg/dL (7-18) L 06/17/17 06:00 Creatinine 1.0 mg/dL (0.55-1.02) 06/17/17 06:00 Creat Clearance w eGFR > 60 (>60) 06/17/17 06:00 Random Glucose 84 mg/dL (74-106) 06/17/17 06:00 Calcium 8.8 mg/dL (8.5-10.1) 06/17/17 06:00 Total Bilirubin 0.5 mg/dL (0.2-1.0) 06/17/17 06:00 AST 19 U/L (15-37) 06/17/17 06:00 ALT 22 U/L (12-78) 06/17/17 06:00 Alkaline Phosphatase 54 U/L (45-117) 06/17/17 06:00 Total Protein 6.8 g/dl (6.4-8.2) 06/17/17 06:00 Albumin 3.7 g/dl (3.4-5.0) 06/17/17 06:00 Urine Color [place] 06/17/17 14:00 Urine Appearance Turbid 06/17/17 14:00 Urine pH 5.0 (5.0-8.0) 06/17/17 14:00 Ur Specific [place] 1.025 (1.001-1.035) 06/17/17 14:00 Urine Protein Negative (NEGATIVE) 06/17/17 14:00 Urine Glucose (UA) Negative (NEGATIVE) 06/17/17 14:00 Urine Ketones Negative (NEGATIVE) 06/17/17 14:00 Urine Blood Negative (NEGATIVE) 06/17/17 14:00 Urine Nitrite Negative (NEGATIVE) 06/17/17 14:00 Urine Bilirubin Negative (<2.0 mg/dL) 06/17/17 14:00 Urine Urobilinogen 2.0 mg/dL (0.2-1.0) H 06/17/17 14:00 Ur Leukocyte Esterase 1+ (NEGATIVE) H 06/17/17 14:00 Urine WBC (Auto) 26 /hpf (3-5) 06/17/17 14:00 Urine RBC (Auto) 7 /hpf (0-3) 06/17/17 14:00 Ur Epithelial Cells Many /HPF (FEW) 06/17/17 14:00 Urine Bacteria Many /hpf (NONE SEEN) 06/17/17 14:00 Urine Mucus Rare 06/17/17 14:00 RPR Titer Nonreactive (NONREACTIVE) 06/17/17 06:00 HIV-1 Antibody Positive (Negative) H 06/16/17 14:00 HIV-2 Antibody Negative (Negative) 06/16/17 14:00 HIV 1&2 Ag/Ab, 4th Gen Reactive (Non Reactive) H 06/16/17 14:00 HIV Note Hiv-1 positive (.) 06/16/17 14:00 HIV 1&2 Antibody Screen Preliminary positive 06/16/17 14:00 HIV P24 Antigen Negative 06/16/17 14:00 lab noted - Treatment Hospital Course: Detox Protocol Followed, Detoxed Safely, Responded well, Discharged Condition Good, Rehab Referral Accepted Patient has Accepted a Re[facility] Referral to: [facility] - Medication Discharge Medications: Ambulatory Orders Buprenorphine HCl/Naloxone HCl [Suboxone 8 mg-2 mg Sl Tablets] 1 each SL DAILY # 8 tab.subl MDD 1 05/13/17 Buprenorphine HCl/Naloxone HCl [Suboxone 8 mg-2 mg Sl Tablets] 1 each SL DAILY # 30 tab.subl MDD 12 05/20/17 Buprenorphine HCl/Naloxone HCl [Suboxone 8 mg-2 mg Sl Tablets] 1 each SL DAILY # 30 tab.subl MDD 12mg 05/20/17 Buprenorphine HCl/Naloxone HCl [Suboxone 8 mg-2 mg Sl Tablets] 2 each SL DAILY MDD 0 06/16/17 Quetiapine Fumarate [Seroquel -] 50 mg PO TID #90 tablet 06/19/17 - Diagnosis (1) HIV disease Current Visit: Yes Status: Acute (2) Opioid dependence with withdrawal Current Visit: Yes Status: Acute (3) Nicotine dependence Current Visit: Yes Status: Chronic Qualifiers: Nicotine product type: cigarettes Substance use status: in withdrawal Qualified Code(s): F17.213 - Nicotine dependence, cigarettes, with withdrawal - AMA Did Patient Leave Against Medical Advice: No
[2017-06-21] MEDS ORDERED: METHADONE HCL 5 MG TABLET (FOR DETOX USE ONLY) PO ONE (06:00)
== END 2017-06-20 15:49 | disposition other institution (70) | DRG 773 ==
LOC: YASAS 10:12 → Y6N 14:33
PROVIDERS: ADMIT Surgery; ATTEND Surgery
PROC: HZ2ZZZZ Detoxification Services for Substance Abuse Treatment (ICD-10-PCS; principal; 2017-06-16)
DX: F11.23 Opioid dependence with withdrawal (principal); F14.20 Cocaine dependence, uncomplicated; F17.210 Nicotine dependence, cigarettes, uncomplicated; F19.24 Other psychoactive substance dependence with psychoactive substance-induced mood disorder; Z21 Asymptomatic human immunodeficiency virus [HIV] infection status; G47.00 Insomnia, unspecified
CPT/HCPCS: 36415; 80053; 81003; 81015; 85027; 86593; 87389; 93005; 93010

== ENCOUNTER 2017-06-20 15:56 | Inpatient (IN) | payer OTHER ==
--- NOTE | 2017-06-20 17:26 | PN ---
Psychiatric Progress Note Date of Session: 06/20/17 Chief Complaint:: HIV consultation. HPI: Pt. admitted to for opiate and cocaine dependence ROS: Confirmatory test positive for HIV Medication(s) Change(s): No. Current Side Effect: No Lab tests ordered: No Lab tests reviewed: Yes Provider note:: - Note delay. detox psychiatric progress note. Sr. Operations Manager met with patient for post HIV counseling consultation to determine assessment of mental status. Pt. presents as sad but hopeful. Patient was informed by [facility] that her HIV status results was confirmatory positive. Pt. requesting a second HIV serum test. Pt. refusing to accept medication for HIV until second test is complete. Patient agreeable to accepting medication for HIV if test results are positive after second confirmatory results. Pt. denies history of suicide attempts. Pt. denies suicidal/homicidal ideation. At this time patient is not at risk for impulsive behavior. Patient able to state her sixteen year old son as her protective factor. Patient is agreeable to transfer to rehab to further assist with addiction recovery. Will continue to monitor. Total face to face time:: 35 Mental Status Exam - Mental Status Exam Alert and Oriented to: Time, Place, Person Cognitive Function: Good Patient Appearance: Well Groomed Mood: Sad Affect: Mood Congruent Patient Behavior: Cooperative Speech Pattern: Appropriate Voice Loudness: Normal Thought Process: Goal Oriented Thought Disorder: Not Present Hallucinations: Denies Suicidal Ideation: Denies Homicidal Ideation: Denies Insight/Judgement: Poor Sleep: Fair Appetite: Good Muscle strength/Tone: Normal Gait/Station: Normal Psychiatric Treatment Plan - Problem List (1) Drug-induced mood disorder Current Visit: Yes (2) Insomnia Current Visit: Yes (3) Opioid dependence with withdrawal Current Visit: Yes (4) Cocaine dependence Current Visit: Yes Qualifiers: Substance use status: uncomplicated Qualified Code(s): F14.20 - Cocaine dependence, uncomplicated (5) Nicotine dependence Current Visit: Yes Qualifiers: Nicotine product type: cigarettes Substance use status: in withdrawal Qualified Code(s): F17.213 - Nicotine dependence, cigarettes, with withdrawal
[2017-06-20] MEDS ORDERED: MAGNESIUM HYDROX 2400MG/30ML ORAL SUSPENSION 30 ML CUP PO PRN (17:54)
[2017-06-20] MEDS ORDERED: P-EPHED 60MG/TRIPROLIDI 2.5MG TABLET PO PRN (17:54)
[2017-06-20] MEDS ORDERED: MAG HYDROX/AL HYDROX/SIMETH 30 ML UNIT-DOSE CUP PO PRN (17:54)
[2017-06-20] MEDS ORDERED: MAGNESIUM CITRATE 300 ML BOTTLE PO PRN (17:54)
[2017-06-20] MEDS ORDERED: guaiFENesin/D-METHORPHAN HB 10 ML UNIT-DOSE CUPS PO PRN (17:54)
[2017-06-20] MEDS ORDERED: MENTHOL/PHENOL 1 EACH UD MM PRN (17:54)
[2017-06-20] MEDS ORDERED: IBUPROFEN 400 MG TABLET (FP) PO PRN (17:54)
[2017-06-20] MEDS: hydrOXYzine PAMOATE 50 MG CAPSULE (FP) PO PRN (18:15)
[2017-06-20] MEDS ORDERED: HALOPERIDOL 5 MG TABLET (FP) PO ONE (18:45)
[2017-06-20] MEDS ORDERED: QUEtiapine FUMARATE 50 MG TABLET PO ONE (18:45)
[2017-06-20 18:59] VITALS: BMI 22.6
--- NOTE | 2017-06-20 19:12 | PN ---
[facility] Progress Note Note: Psychiatrist communications engineering technician note: Called by nurse requesting medication for agitation for newly admitted patient from [facility] this evening. Chart reviewed and notes by WAFFLE MACHINE OPERATOR, LENO and Dr Byrd read and appreciated. Patient was admited to inpatient detox on 06/17/17 for heroin and cocaine . On 06/18/17 she was seen by LENO Das on regular requested consultation. According to LENO Das's note, patient has never received psychiatric treatment. Patient was later seen that day by LENO and HIV counselor from [facility] so she can be informed of her newly HIV status. Patient was described to be sad and frustrated after learning of her status. For her safety , she was placed on 1:1 and a psychiatric re consultation was requested. That same day, patient was seen again by LENO Das who, in addition to adjusting anti anxiety med, discontinued 1:1 since patient was not judged to be a danger to self or others. On 06/19/17, patient was seen by Dr Guerrero because she was described as anxious and agitated. Dr Guerrero started Haldol 5 mg po stat then 1 mg po Q 4hrs prn for agitation. Patient was seen twice today by LENO Das who cleared the patient for transfer to inpatient rehab. Patient was transferred to rehab with Seroquel 50 mg po TID as part of her home medication. In addition to continue Seroquel 50 mg po TID, Haldol 1 mg po Q 4hrs prn for agitation is being ordered for patient so nursing staff can proper manage her agitated behavior
[2017-06-20] MEDS: QUEtiapine FUMARATE 50 MG TABLET PO SCH ×2 (23:21→23:27)
[2017-06-20] MEDS: THIAMINE HCL 100 MG TABLET (FP) PO SCH (23:21)
[2017-06-21] MEDS: CIPROFLOXACIN HCL 0.3% OPHTH 2.5ML BOTTLE OU SCH ×5 (06:55→21:38)
[2017-06-21] MEDS: QUEtiapine FUMARATE 50 MG TABLET PO SCH ×3 (06:56→21:37)
[2017-06-21] MEDS: PRENATAL VITAMINS W/ FOLIC ACID TABLET (FP) PO SCH (10:12)
[2017-06-21] MEDS: NICOTINE 21 MG/24 HOURS TOPICAL PATCH TD SCH (10:12)
[2017-06-21] MEDS: hydrOXYzine PAMOATE 50 MG CAPSULE (FP) PO PRN ×3 (10:15→18:47)
[2017-06-21] MEDS: HALOPERIDOL 1 MG TABLET (FP) PO PRN ×3 (10:15→18:47)
[2017-06-21] MEDS ORDERED: PT OWN MED DRAWER 7, Y5N ONE (14:38)
--- NOTE | 2017-06-21 18:36 | PN ---
S Progress Note Note: WITHDRAWAL SYMPTOM Vital Signs Temperature 98.5 F 06/21/17 07:26 Pulse Rate 69 06/21/17 07:26 Respiratory Rate 18 06/21/17 07:26 Blood Pressure 99/57 06/21/17 07:26 O2 Sat by Pulse Oximetry (%) TO GIVE FLEXERIL 10 MGS PO TID PRN FOR 72 HRS CLONIDINE 0.1 MG PO BID FOR 72 HRS TO HOLD IF SYSTOLIC BP BELOW 100
[2017-06-21] MEDS: CYCLOBENZAPRINE HCL 10 MG TABLET (FP) PO PRN (18:47)
[2017-06-21] MEDS: THIAMINE HCL 100 MG TABLET (FP) PO SCH (21:37)
[2017-06-21] MEDS: cloNIDine HCL 0.1 MG TABLET PO SCH (21:37)
[2017-06-22] MEDS: CIPROFLOXACIN HCL 0.3% OPHTH 2.5ML BOTTLE OU SCH ×5 (06:38→21:29)
[2017-06-22] MEDS: QUEtiapine FUMARATE 50 MG TABLET PO SCH ×3 (06:38→21:28)
[2017-06-22] MEDS: hydrOXYzine PAMOATE 50 MG CAPSULE (FP) PO PRN ×3 (06:43→17:09)
[2017-06-22] MEDS: CYCLOBENZAPRINE HCL 10 MG TABLET (FP) PO PRN ×3 (06:43→21:28)
[2017-06-22] MEDS: cloNIDine HCL 0.1 MG TABLET PO SCH ×2 (09:40→21:28)
[2017-06-22] MEDS: PRENATAL VITAMINS W/ FOLIC ACID TABLET (FP) PO SCH (09:41)
[2017-06-22] MEDS: NICOTINE 21 MG/24 HOURS TOPICAL PATCH TD SCH (09:41)
[2017-06-22] MEDS: HALOPERIDOL 1 MG TABLET (FP) PO PRN ×2 (09:43→17:09)
[2017-06-22] MEDS: THIAMINE HCL 100 MG TABLET (FP) PO SCH (21:28)
[2017-06-22] MEDS: MELATONIN 5 MG TABLETS PO PRN (21:28)
--- NOTE | 2017-06-22 21:43 | PN ---
[facility] Progress Note Note: c/o withdrawal sx, would like to restqrt suboxone give 2mg x1 dose now then 4mg daily, aseess for dose adequacy after a few days if patietn still reports cravings/desire to use.
[2017-06-22] MEDS ORDERED: BUPRENORPHINE/NALOXONE 2 MG/0.5 MG FILM PACKET SL ONE (21:45)
[2017-06-22] MEDS: CYCLOBENZAPRINE HCL 10 MG TABLET (FP) PO SCH (22:48)
[2017-06-23] MEDS: QUEtiapine FUMARATE 50 MG TABLET PO SCH (06:29)
[2017-06-23] MEDS: CYCLOBENZAPRINE HCL 10 MG TABLET (FP) PO SCH ×3 (06:30→21:27)
[2017-06-23] MEDS: CIPROFLOXACIN HCL 0.3% OPHTH 2.5ML BOTTLE OU SCH ×5 (06:30→23:02)
[2017-06-23] MEDS: hydrOXYzine PAMOATE 50 MG CAPSULE (FP) PO PRN ×3 (06:31→20:02)
[2017-06-23] MEDS: HALOPERIDOL 1 MG TABLET (FP) PO PRN ×3 (06:31→20:02)
[2017-06-23] MEDS: cloNIDine HCL 0.1 MG TABLET PO SCH ×2 (10:05→21:27)
[2017-06-23] MEDS: PRENATAL VITAMINS W/ FOLIC ACID TABLET (FP) PO SCH (10:05)
[2017-06-23] MEDS: BUPRENORPHINE/NALOXONE 2 MG/0.5 MG FILM PACKET SL SCH (10:06)
[2017-06-23] MEDS: NICOTINE 21 MG/24 HOURS TOPICAL PATCH TD SCH (10:08)
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
[2017-06-23] MEDS: QUEtiapine FUMARATE 100 MG TABLET (FP) PO SCH ×3 (12:02→21:27)
[2017-06-23] MEDS ORDERED: PT OWN MED DRAWER 7, Y5N ONE (12:43)
--- NOTE | 2017-06-23 16:13 | PN ---
[facility] Progress Note Note: received nurse called that the patient is newly diagnosed hiv status, patient requested second set of hiv blood test result to consider begin ART medication, order t lymphacyte + hiv viral load + hepatitis b status + resistance testing + CD4 count continue health teaching on hiv and treatment modality
[2017-06-23] MEDS: diphenhydrAMINE HCL 50 MG CAPSULE PO PRN (21:27)
[2017-06-23] MEDS: THIAMINE HCL 100 MG TABLET (FP) PO SCH (21:27)
[2017-06-23] MEDS ORDERED: QUEtiapine FUMARATE 100 MG TABLET (FP) PO SCH (22:00)
[2017-06-23] MEDS: NICOTINE POLACRILEX 2 MG GUM BUC PRN (22:03)
[2017-06-24] MEDS ORDERED: PT OWN MED DRAWER 7, Y5N ONE ×3 (05:10→18:18)
[2017-06-24] MEDS: QUEtiapine FUMARATE 100 MG TABLET (FP) PO SCH ×3 (06:25→21:21)
[2017-06-24] MEDS: CYCLOBENZAPRINE HCL 10 MG TABLET (FP) PO SCH ×3 (06:25→21:21)
[2017-06-24] MEDS: hydrOXYzine PAMOATE 50 MG CAPSULE (FP) PO PRN ×3 (06:27→18:19)
[2017-06-24] MEDS: HALOPERIDOL 1 MG TABLET (FP) PO PRN ×3 (06:28→18:19)
[2017-06-24] MEDS: CIPROFLOXACIN HCL 0.3% OPHTH 2.5ML BOTTLE OU SCH ×3 (06:29→14:39)
[2017-06-24] MEDS: BUPRENORPHINE/NALOXONE 2 MG/0.5 MG FILM PACKET SL SCH (10:31)
[2017-06-24] MEDS: PRENATAL VITAMINS W/ FOLIC ACID TABLET (FP) PO SCH (10:31)
[2017-06-24] MEDS: cloNIDine HCL 0.1 MG TABLET PO SCH ×2 (10:32→21:22)
[2017-06-24] MEDS: NICOTINE 21 MG/24 HOURS TOPICAL PATCH TD SCH (10:33)
--- NOTE | 2017-06-24 15:01 | PN ---
[facility] Progress Note Note: Patient c/o of protracted opioid withdrawal symptoms, reports interrupted sleep , anxious, diaphoresis. Patient currently on suboxone 4 mg qd . As per patient cravings increase in the afternoon and feels the medication is not working. Vital Signs Temperature 98.7 F 06/24/17 06:52 Pulse Rate 77 06/24/17 09:00 Respiratory Rate 16 06/24/17 06:52 Blood Pressure 103/63 06/24/17 09:00 O2 Sat by Pulse Oximetry (%) A/P Patient Aox3 self directing, anxious, mild diaphoresis Normal HR and rhythm No adventitious breath sounds Full ROM Plan: Increase suboxone to 4mg BID Increase fluids Continue to monitor
[2017-06-24] MEDS: OFLOXACIN 0.3% OPHTHALMIC SOLUTION 5 ML BOTTLE OU SCH ×2 (19:29→21:20)
[2017-06-24] MEDS: THIAMINE HCL 100 MG TABLET (FP) PO SCH (21:20)
[2017-06-24] MEDS: diphenhydrAMINE HCL 50 MG CAPSULE PO PRN (21:21)
[2017-06-25] MEDS: OFLOXACIN 0.3% OPHTHALMIC SOLUTION 5 ML BOTTLE OU SCH ×5 (06:36→21:29)
[2017-06-25] MEDS: CYCLOBENZAPRINE HCL 10 MG TABLET (FP) PO SCH ×3 (06:37→21:29)
[2017-06-25] MEDS: HALOPERIDOL 1 MG TABLET (FP) PO PRN ×3 (06:37→20:00)
[2017-06-25] MEDS: QUEtiapine FUMARATE 100 MG TABLET (FP) PO SCH ×3 (06:37→21:29)
[2017-06-25] MEDS: hydrOXYzine PAMOATE 50 MG CAPSULE (FP) PO PRN ×3 (06:37→20:00)
[2017-06-25] MEDS: NICOTINE 21 MG/24 HOURS TOPICAL PATCH TD SCH (09:31)
[2017-06-25] MEDS: PRENATAL VITAMINS W/ FOLIC ACID TABLET (FP) PO SCH (09:32)
[2017-06-25] MEDS: BUPRENORPHINE/NALOXONE 2 MG/0.5 MG FILM PACKET SL SCH ×2 (09:33→21:33)
[2017-06-25] MEDS: ACETAMINOPHEN 325 MG TABLET (FP) PO PRN ×2 (10:59→20:01)
[2017-06-25] MEDS: BENZTROPINE MESYLATE 1 MG TABLET (FP) PO PRN (11:55)
[2017-06-25] MEDS ORDERED: PT OWN MED DRAWER 7, Y5N ONE (17:00)
[2017-06-25] MEDS: THIAMINE HCL 100 MG TABLET (FP) PO SCH (21:29)
[2017-06-25] MEDS: diphenhydrAMINE HCL 50 MG CAPSULE PO PRN (21:29)
[2017-06-26] MEDS: OFLOXACIN 0.3% OPHTHALMIC SOLUTION 5 ML BOTTLE OU SCH ×5 (06:37→21:27)
[2017-06-26] MEDS: BENZTROPINE MESYLATE 1 MG TABLET (FP) PO PRN ×3 (06:38→21:26)
[2017-06-26] MEDS: CYCLOBENZAPRINE HCL 10 MG TABLET (FP) PO SCH ×3 (06:38→21:22)
[2017-06-26] MEDS: hydrOXYzine PAMOATE 50 MG CAPSULE (FP) PO PRN ×4 (06:38→19:17)
[2017-06-26] MEDS: HALOPERIDOL 1 MG TABLET (FP) PO PRN ×4 (06:38→19:17)
[2017-06-26] MEDS: QUEtiapine FUMARATE 100 MG TABLET (FP) PO SCH ×3 (06:38→21:22)
[2017-06-26] MEDS ORDERED: PT OWN MED DRAWER 7, Y5N ONE ×2 (08:44→16:53)
[2017-06-26] MEDS: BUPRENORPHINE/NALOXONE 2 MG/0.5 MG FILM PACKET SL SCH ×2 (10:06→21:21)
[2017-06-26] MEDS: PRENATAL VITAMINS W/ FOLIC ACID TABLET (FP) PO SCH (10:06)
[2017-06-26] MEDS: NICOTINE 21 MG/24 HOURS TOPICAL PATCH TD SCH (10:06)
[2017-06-26] MEDS: THIAMINE HCL 100 MG TABLET (FP) PO SCH (21:22)
[2017-06-26] MEDS: MELATONIN 5 MG TABLETS PO PRN (21:23)
[2017-06-26] MEDS: diphenhydrAMINE HCL 50 MG CAPSULE PO PRN (21:24)
[2017-06-27] MEDS: CYCLOBENZAPRINE HCL 10 MG TABLET (FP) PO SCH ×3 (06:46→21:36)
[2017-06-27] MEDS: QUEtiapine FUMARATE 100 MG TABLET (FP) PO SCH ×2 (06:46→13:23)
[2017-06-27] MEDS: OFLOXACIN 0.3% OPHTHALMIC SOLUTION 5 ML BOTTLE OU SCH ×5 (06:46→21:35)
[2017-06-27] MEDS ORDERED: PT OWN MED DRAWER 7, Y5N ONE ×3 (08:44→14:49)
[2017-06-27] MEDS: PRENATAL VITAMINS W/ FOLIC ACID TABLET (FP) PO SCH (10:42)
[2017-06-27] MEDS: NICOTINE 21 MG/24 HOURS TOPICAL PATCH TD SCH (10:42)
[2017-06-27] MEDS: BUPRENORPHINE/NALOXONE 2 MG/0.5 MG FILM PACKET SL SCH ×2 (10:43→21:36)
[2017-06-27] MEDS: hydrOXYzine PAMOATE 50 MG CAPSULE (FP) PO PRN ×2 (10:43→14:37)
[2017-06-27] MEDS: BENZTROPINE MESYLATE 1 MG TABLET (FP) PO PRN ×3 (10:43→21:41)
[2017-06-27] MEDS: HALOPERIDOL 1 MG TABLET (FP) PO PRN ×3 (10:43→21:40)
[2017-06-27] MEDS ORDERED: QUEtiapine FUMARATE 200 MG TABLET PO ONE (15:12)
--- NOTE | 2017-06-27 15:35 | PN ---
Psychiatric Progress Note Vital Signs: Vital Signs Period Temp Pulse Resp BP Sys/Sheth Pulse Ox Last 24 Hr 98.3 F 98 18-18 114/78 Date of Session: 06/27/17 Chief Complaint:: Andrew very anxious,easily frustrated,andrew waiting for the HIV result. HPI: Patient addressed Opioid ,Cocaine dependence comorbid with Substance induced mood disorder. ROS: Significant for HIV+. Current Medications: Active Medications Generic Name Dose Route Start Last Admin Trade Name Freq PRN Reason Stop Dose Admin Acetaminophen 650 mg 06/20/17 17:55 06/25/17 20:01 Tylenol - PO 650 mg Q4H PRN Administration FEVER Al Hydroxide/Mg Hydroxide 30 ml 06/20/17 17:54 Mylanta Oral Suspension - PO Q6H PRN DYSPEPSIA Amitriptyline HCl 25 mg 06/27/17 22:00 Elavil - PO BID JANIS Benztropine Mesylate 0.5 mg 06/25/17 11:36 06/27/17 14:40 Cogentin - PO 0.5 mg TID PRN Administration AGITATION Buprenorphine/Naloxone 2 each 06/25/17 10:00 06/27/17 10:43 Suboxone 2mg/0.5mg Sl Film - SL 2 each BID JANIS Administration Cyclobenzaprine HCl 10 mg 06/22/17 22:00 06/27/17 13:23 Flexeril - PO 10 mg TID JANIS Administration Diphenhydramine HCl 50 mg 06/23/17 11:24 06/26/17 21:24 Benadryl - PO 50 mg HS PRN Administration INSOMNIA Eucalyptus/Menthol/Phenol/Sorbitol 1 each 06/20/17 17:54 Cepastat Lozenge - MM Q4H PRN SORE THROAT Guaifenesin 10 ml 06/20/17 17:54 Robitussin Dm - PO Q6H PRN COUGH Haloperidol 1 mg 06/20/17 18:59 06/27/17 14:37 Haldol - PO 1 mg Q4H PRN Administration AGITATION Hydroxyzine Pamoate 50 mg 06/20/17 17:54 06/27/17 14:37 Vistaril - PO 50 mg Q4H PRN Administration AGITATION Loperamide HCl 4 mg 06/20/17 17:54 Imodium - PO Q6H PRN DIARRHEA Magnesium Citrate 300 ml 06/20/17 17:54 Citroma - PO Q48H PRN CONSTIPATION Magnesium Hydroxide 30 ml 06/20/17 17:54 Milk Of Magnesia - PO DAILY PRN CONSTIPATION Melatonin 5 mg 06/20/17 22:00 06/26/17 21:23 Melatonin PO 5 mg HS PRN Administration INSOMNIA Nicotine 21 mg 06/21/17 10:00 06/27/17 10:42 Nicoderm Patch - TD Not Given DAILY JANIS Nicotine Polacrilex 2 mg 06/20/17 17:58 06/23/17 22:03 Nicorette Gum - BUC 2 mg Q2H PRN Administration NICOTINE REPLACEMENT RX Ofloxacin 2 drop 06/24/17 18:00 06/27/17 13:23 Ocuflox 0.3% Eye Drops - OU 2 drop Q4HWA JANIS Administration Multivit/Folic Acid/Iron 1 tab 06/21/17 10:00 06/27/17 10:42 Vitamins (Sjr) - PO 1 tab DAILY JANIS Administration Pseudoephedrine/Triprolidine 1 combo 06/20/17 17:54 Actifed - PO TID PRN NASAL CONGESTION Quetiapine Fumarate 200 mg 06/28/17 10:00 Seroquel - PO BID@1000,1400 JANIS Thiamine HCl 100 mg 06/20/17 22:00 06/26/17 21:22 Vitamin B1 - PO 100 mg HS JANIS Administration Current Side Effect: No Lab tests ordered: No Lab tests reviewed: Yes Provider note:: Chart was revuwed,patient was evaluated,treatment plan incuding medication management has been discussed with the patient.she addressed ongoing anxiety,sleeping difficulties,mood instability.properties of Elavil has been discussed with the patient including side effects,benefits and dosse adjustment. Elavil 25 mg po bid samantha be started today.Continue Seroquel 300 mg po hs. supportive therapy provided. Total face to face time:: 35 Mental Status Exam - Mental Status Exam Alert and Oriented to: Time, Place, Person Cognitive Function: Grossly Intact Patient Appearance: Well Groomed Mood: Nervous, Anxious, Irritable Affect: Mood Congruent, Labile Patient Behavior: Cooperative Speech Pattern: Clear Voice Loudness: Normal Thought Process: Goal Oriented Thought Disorder: Not Present Hallucinations: Denies Suicidal Ideation: Denies Homicidal Ideation: Denies Insight/Judgement: Fair Sleep: Difficulty falling asleep Appetite: Fair Muscle strength/Tone: Normal Gait/Station: Normal Psychiatric Treatment Plan - Problem List (1) Drug-induced mood disorder Current Visit: Yes (2) Cocaine dependence Current Visit: Yes Qualifiers: Substance use status: uncomplicated Qualified Code(s): F14.20 - Cocaine dependence, uncomplicated (3) Nicotine dependence Current Visit: Yes Qualifiers: Nicotine product type: cigarettes Substance use status: in withdrawal Qualified Code(s): F17.213 - Nicotine dependence, cigarettes, with withdrawal (4) Opioid dependence Current Visit: Yes Qualifiers: Substance use status: uncomplicated Qualified Code(s): F11.20 - Opioid dependence, uncomplicated Comment: start suboxone 4mg today - film not covered -will Rx tablets - safekeeping reviewed -counseled to allow to dissolve under tongue completely - continue to attend groups, avoid illicit drugs and alcohol (5) HIV disease Current Visit: Yes
[2017-06-27] MEDS: AMITRIPTYLINE HCL 25 MG TABLET (FP) PO SCH (18:05)
[2017-06-27] MEDS: THIAMINE HCL 100 MG TABLET (FP) PO SCH (21:36)
[2017-06-27] MEDS: diphenhydrAMINE HCL 50 MG CAPSULE PO PRN (21:40)
[2017-06-27] MEDS ORDERED: AMITRIPTYLINE HCL 25 MG TABLET (FP) PO SCH (22:00)
[2017-06-28] MEDS ORDERED: PT OWN MED DRAWER 7, Y5N ONE ×3 (03:18→17:31)
[2017-06-28] MEDS: BENZTROPINE MESYLATE 1 MG TABLET (FP) PO PRN (06:47)
[2017-06-28] MEDS: OFLOXACIN 0.3% OPHTHALMIC SOLUTION 5 ML BOTTLE OU SCH ×5 (06:47→21:44)
[2017-06-28] MEDS: CYCLOBENZAPRINE HCL 10 MG TABLET (FP) PO SCH ×3 (06:47→21:44)
[2017-06-28] MEDS: hydrOXYzine PAMOATE 50 MG CAPSULE (FP) PO PRN ×3 (06:47→18:04)
[2017-06-28] MEDS: HALOPERIDOL 1 MG TABLET (FP) PO PRN ×3 (06:47→18:04)
[2017-06-28] MEDS: QUEtiapine FUMARATE 200 MG TABLET PO SCH ×2 (09:51→13:08)
[2017-06-28] MEDS: NICOTINE 21 MG/24 HOURS TOPICAL PATCH TD SCH (09:51)
[2017-06-28] MEDS: PRENATAL VITAMINS W/ FOLIC ACID TABLET (FP) PO SCH (09:51)
[2017-06-28] MEDS: AMITRIPTYLINE HCL 25 MG TABLET (FP) PO SCH ×2 (09:51→18:01)
[2017-06-28] MEDS: BUPRENORPHINE/NALOXONE 2 MG/0.5 MG FILM PACKET SL SCH ×2 (09:52→21:45)
[2017-06-28] MEDS: NICOTINE POLACRILEX 2 MG GUM BUC PRN (10:57)
[2017-06-28] MEDS: diphenhydrAMINE HCL 50 MG CAPSULE PO PRN (21:44)
[2017-06-28] MEDS: THIAMINE HCL 100 MG TABLET (FP) PO SCH (21:44)
[2017-06-28] MEDS ORDERED: cloNIDine HCL 0.1 MG TABLET PO PRN (22:59)
[2017-06-29] MEDS: LOPERAMIDE HCL 2 MG CAPSULE PO PRN ×3 (00:24→19:45)
[2017-06-29] MEDS: diphenhydrAMINE HCL 50 MG CAPSULE PO PRN ×2 (00:25→21:21)
[2017-06-29] MEDS: OFLOXACIN 0.3% OPHTHALMIC SOLUTION 5 ML BOTTLE OU SCH ×5 (06:43→21:21)
[2017-06-29] MEDS: hydrOXYzine PAMOATE 50 MG CAPSULE (FP) PO PRN ×4 (06:43→23:39)
[2017-06-29] MEDS: HALOPERIDOL 1 MG TABLET (FP) PO PRN ×4 (06:44→23:39)
[2017-06-29] MEDS: CYCLOBENZAPRINE HCL 10 MG TABLET (FP) PO SCH ×3 (06:44→21:21)
[2017-06-29] MEDS: BENZTROPINE MESYLATE 1 MG TABLET (FP) PO PRN ×2 (06:44→18:14)
[2017-06-29] MEDS: NICOTINE 21 MG/24 HOURS TOPICAL PATCH TD SCH (10:01)
[2017-06-29] MEDS: AMITRIPTYLINE HCL 25 MG TABLET (FP) PO SCH ×2 (10:02→18:11)
[2017-06-29] MEDS: QUEtiapine FUMARATE 200 MG TABLET PO SCH ×2 (10:02→13:05)
[2017-06-29] MEDS: PRENATAL VITAMINS W/ FOLIC ACID TABLET (FP) PO SCH (10:02)
[2017-06-29] MEDS: BUPRENORPHINE/NALOXONE 2 MG/0.5 MG FILM PACKET SL SCH ×2 (10:03→21:22)
[2017-06-29] MEDS ORDERED: PT OWN MED DRAWER 7, Y5N ONE (18:12)
[2017-06-29] MEDS: THIAMINE HCL 100 MG TABLET (FP) PO SCH (21:22)
[2017-06-29] MEDS: ACETAMINOPHEN 325 MG TABLET (FP) PO PRN (23:42)
[2017-06-30] MEDS ORDERED: PT OWN MED DRAWER 7, Y5N ONE ×5 (04:18→16:55)
[2017-06-30] MEDS: OFLOXACIN 0.3% OPHTHALMIC SOLUTION 5 ML BOTTLE OU SCH ×5 (06:23→21:22)
[2017-06-30] MEDS: CYCLOBENZAPRINE HCL 10 MG TABLET (FP) PO SCH ×3 (06:23→21:21)
[2017-06-30] MEDS: HALOPERIDOL 1 MG TABLET (FP) PO PRN ×2 (06:24→11:38)
[2017-06-30] MEDS: hydrOXYzine PAMOATE 50 MG CAPSULE (FP) PO PRN ×2 (06:24→10:32)
[2017-06-30] MEDS: BUPRENORPHINE/NALOXONE 2 MG/0.5 MG FILM PACKET SL SCH (10:28)
[2017-06-30] MEDS: QUEtiapine FUMARATE 200 MG TABLET PO SCH ×2 (10:29→13:39)
[2017-06-30] MEDS: PRENATAL VITAMINS W/ FOLIC ACID TABLET (FP) PO SCH (10:29)
[2017-06-30] MEDS: NICOTINE 21 MG/24 HOURS TOPICAL PATCH TD SCH (10:29)
[2017-06-30] MEDS: AMITRIPTYLINE HCL 25 MG TABLET (FP) PO SCH ×2 (10:29→17:40)
[2017-06-30] MEDS: BENZTROPINE MESYLATE 1 MG TABLET (FP) PO PRN (11:38)
[2017-06-30] MEDS: NICOTINE POLACRILEX 2 MG GUM BUC PRN (11:39)
--- NOTE | 2017-06-30 12:55 | PN ---
[facility] Progress Note Note: PATIENT C/O WHITE PATCH ON TONGUE AND OPIOD CRAVINGS. Vital Signs Temperature 98.2 F 06/30/17 07:07 Pulse Rate 79 06/30/17 07:07 Respiratory Rate 18 06/30/17 07:07 Blood Pressure 115/68 06/30/17 07:07 O2 Sat by Pulse Oximetry (%) PE: GENERAL: ALERT AND ORIENTED. ANXIOUS AND PACING IN HALLWAY. SKIN: WARM AND DRY ENT: NO NASAL CONGESTION OR DISCHARGE. +THRUSH ON SIDES OF TONGUE. MUCOSA PINK AND MOIST PSYCH: ANXIOUS. + OPIOD CRAVINGS. PACES IN HALLWAY BY NURSES STATION. A/P: OPIOD CRAVINGS ORAL THRUSH WILL INCREASE SUBOXONE TO 12MG DAILY STARTING TOMORROW START NYSTATIN S/S EVERY 6 HOURS X 7 DAYS CONTINUE TO MONITOR CLINICALLY
[2017-06-30] MEDS: NYSTATIN 500,000 UNITS/5 ML SUSPENSION PO SCH ×2 (17:47→23:35)
--- NOTE | 2017-06-30 18:08 | PN ---
S Progress Note Note: Patient currently on 8mg of Suboxone qd on split dose of 4mg BID. Patient is missing evening dose of 4mg and is schedule for increase to 12 mg QD tomorrow. One time dose 4mg for this evening order. Patient to start 12mg tomorrow as schedule Continue to monitor
[2017-06-30] MEDS ORDERED: BUPRENORPHINE/NALOXONE 2 MG/0.5 MG FILM PACKET SL ONE (18:45)
[2017-06-30] MEDS: THIAMINE HCL 100 MG TABLET (FP) PO SCH (21:21)
[2017-06-30] MEDS: diphenhydrAMINE HCL 50 MG CAPSULE PO PRN (21:21)
[2017-06-30] MEDS: ACETAMINOPHEN 325 MG TABLET (FP) PO PRN (21:57)
[2017-07-01] MEDS: CYCLOBENZAPRINE HCL 10 MG TABLET (FP) PO SCH ×3 (06:38→21:35)
[2017-07-01] MEDS: NYSTATIN 500,000 UNITS/5 ML SUSPENSION PO SCH ×4 (06:39→23:35)
[2017-07-01] MEDS: OFLOXACIN 0.3% OPHTHALMIC SOLUTION 5 ML BOTTLE OU SCH ×5 (06:40→21:35)
[2017-07-01] MEDS: ACETAMINOPHEN 325 MG TABLET (FP) PO PRN ×3 (06:41→23:36)
[2017-07-01] MEDS: NICOTINE 21 MG/24 HOURS TOPICAL PATCH TD SCH (10:00)
[2017-07-01] MEDS: AMITRIPTYLINE HCL 25 MG TABLET (FP) PO SCH ×2 (10:03→17:56)
[2017-07-01] MEDS: BUPRENORPHINE HCL/NALOXONE 12 MG-3 MG SL FILM PACKET SL SCH (10:04)
[2017-07-01] MEDS: QUEtiapine FUMARATE 200 MG TABLET PO SCH ×2 (10:04→13:24)
[2017-07-01] MEDS: PRENATAL VITAMINS W/ FOLIC ACID TABLET (FP) PO SCH (10:04)
[2017-07-01] MEDS: HALOPERIDOL 1 MG TABLET (FP) PO PRN ×3 (11:54→23:33)
[2017-07-01] MEDS: hydrOXYzine PAMOATE 50 MG CAPSULE (FP) PO PRN ×3 (11:54→23:33)
[2017-07-01] MEDS ORDERED: COLLOIDAL OATMEAL 1 BAR EACH TP PRN (13:47)
[2017-07-01] MEDS: THIAMINE HCL 100 MG TABLET (FP) PO SCH (21:35)
[2017-07-01] MEDS: diphenhydrAMINE HCL 50 MG CAPSULE PO PRN (21:35)
[2017-07-02] MEDS ORDERED: PT OWN MED DRAWER 7, Y5N ONE (03:24)
[2017-07-02] MEDS: NYSTATIN 500,000 UNITS/5 ML SUSPENSION PO SCH ×4 (06:42→23:15)
[2017-07-02] MEDS: CYCLOBENZAPRINE HCL 10 MG TABLET (FP) PO SCH ×3 (06:42→21:31)
[2017-07-02] MEDS: OFLOXACIN 0.3% OPHTHALMIC SOLUTION 5 ML BOTTLE OU SCH ×2 (06:42→10:18)
[2017-07-02] MEDS: QUEtiapine FUMARATE 200 MG TABLET PO SCH ×2 (10:18→13:42)
[2017-07-02] MEDS: PRENATAL VITAMINS W/ FOLIC ACID TABLET (FP) PO SCH (10:18)
[2017-07-02] MEDS: AMITRIPTYLINE HCL 25 MG TABLET (FP) PO SCH ×2 (10:18→17:59)
[2017-07-02] MEDS: NICOTINE 21 MG/24 HOURS TOPICAL PATCH TD SCH (10:19)
[2017-07-02] MEDS: BUPRENORPHINE HCL/NALOXONE 12 MG-3 MG SL FILM PACKET SL SCH (10:19)
[2017-07-02] MEDS: BENZTROPINE MESYLATE 1 MG TABLET (FP) PO PRN (10:21)
[2017-07-02] MEDS: HALOPERIDOL 1 MG TABLET (FP) PO PRN ×3 (10:21→23:15)
[2017-07-02] MEDS: NICOTINE POLACRILEX 2 MG GUM BUC PRN (12:31)
[2017-07-02] MEDS: hydrOXYzine PAMOATE 50 MG CAPSULE (FP) PO PRN ×2 (18:01→23:15)
[2017-07-02] MEDS: THIAMINE HCL 100 MG TABLET (FP) PO SCH (21:31)
[2017-07-02] MEDS: diphenhydrAMINE HCL 50 MG CAPSULE PO PRN (21:31)
[2017-07-03] MEDS: CYCLOBENZAPRINE HCL 10 MG TABLET (FP) PO SCH ×3 (06:23→21:27)
[2017-07-03] MEDS: NYSTATIN 500,000 UNITS/5 ML SUSPENSION PO SCH ×3 (06:27→17:58)
[2017-07-03] MEDS: PRENATAL VITAMINS W/ FOLIC ACID TABLET (FP) PO SCH (10:12)
[2017-07-03] MEDS: QUEtiapine FUMARATE 200 MG TABLET PO SCH ×2 (10:12→13:13)
[2017-07-03] MEDS: NICOTINE 21 MG/24 HOURS TOPICAL PATCH TD SCH (10:12)
[2017-07-03] MEDS: BUPRENORPHINE HCL/NALOXONE 12 MG-3 MG SL FILM PACKET SL SCH (10:12)
[2017-07-03] MEDS: AMITRIPTYLINE HCL 25 MG TABLET (FP) PO SCH ×2 (10:12→17:57)
[2017-07-03] MEDS: HALOPERIDOL 1 MG TABLET (FP) PO PRN ×3 (10:14→19:06)
[2017-07-03] MEDS: BENZTROPINE MESYLATE 1 MG TABLET (FP) PO PRN (10:14)
[2017-07-03] MEDS: hydrOXYzine PAMOATE 50 MG CAPSULE (FP) PO PRN ×3 (10:14→19:06)
[2017-07-03] MEDS: NICOTINE POLACRILEX 2 MG GUM BUC PRN ×2 (10:15→17:59)
[2017-07-03] MEDS ORDERED: PT OWN MED DRAWER 7, Y5N ONE (11:00)
[2017-07-03] MEDS: diphenhydrAMINE HCL 50 MG CAPSULE PO PRN (21:27)
[2017-07-03] MEDS: THIAMINE HCL 100 MG TABLET (FP) PO SCH (21:27)
[2017-07-04] MEDS: NYSTATIN 500,000 UNITS/5 ML SUSPENSION PO SCH ×4 (01:01→17:49)
[2017-07-04] MEDS: CYCLOBENZAPRINE HCL 10 MG TABLET (FP) PO SCH ×3 (06:28→21:43)
[2017-07-04] MEDS: PRENATAL VITAMINS W/ FOLIC ACID TABLET (FP) PO SCH (10:09)
[2017-07-04] MEDS: NICOTINE 21 MG/24 HOURS TOPICAL PATCH TD SCH (10:09)
[2017-07-04] MEDS: BUPRENORPHINE HCL/NALOXONE 12 MG-3 MG SL FILM PACKET SL SCH (10:09)
[2017-07-04] MEDS: AMITRIPTYLINE HCL 25 MG TABLET (FP) PO SCH ×2 (10:09→17:45)
[2017-07-04] MEDS: QUEtiapine FUMARATE 200 MG TABLET PO SCH ×2 (10:09→13:08)
[2017-07-04] MEDS: NICOTINE POLACRILEX 2 MG GUM BUC PRN ×2 (13:08→18:41)
--- NOTE | 2017-07-04 15:57 | PN ---
S Progress Note Note: Reports being anxious for no reason,still sleeping difficulties.Vistaril 50 mg po q 4 hrs will be adjusted to 100 mg po tid. Will monitor progress.
[2017-07-04] MEDS: HALOPERIDOL 1 MG TABLET (FP) PO PRN (17:45)
[2017-07-04] MEDS: BENZTROPINE MESYLATE 1 MG TABLET (FP) PO PRN (17:46)
[2017-07-04] MEDS ORDERED: hydrOXYzine PAMOATE 50 MG CAPSULE (FP) PO ONE (19:00)
[2017-07-04] MEDS: hydrOXYzine PAMOATE 50 MG CAPSULE (FP) PO SCH (21:43)
[2017-07-04] MEDS: THIAMINE HCL 100 MG TABLET (FP) PO SCH (21:43)
[2017-07-05] MEDS: NYSTATIN 500,000 UNITS/5 ML SUSPENSION PO SCH ×4 (00:05→18:11)
[2017-07-05] MEDS: hydrOXYzine PAMOATE 50 MG CAPSULE (FP) PO SCH ×3 (06:40→21:46)
[2017-07-05] MEDS: CYCLOBENZAPRINE HCL 10 MG TABLET (FP) PO SCH ×3 (06:41→21:46)
[2017-07-05] MEDS: QUEtiapine FUMARATE 200 MG TABLET PO SCH ×2 (10:08→13:19)
[2017-07-05] MEDS: BUPRENORPHINE HCL/NALOXONE 12 MG-3 MG SL FILM PACKET SL SCH (10:08)
[2017-07-05] MEDS: AMITRIPTYLINE HCL 25 MG TABLET (FP) PO SCH ×2 (10:08→17:58)
[2017-07-05] MEDS: PRENATAL VITAMINS W/ FOLIC ACID TABLET (FP) PO SCH (10:08)
[2017-07-05] MEDS: NICOTINE 21 MG/24 HOURS TOPICAL PATCH TD SCH (10:09)
[2017-07-05] MEDS: HALOPERIDOL 1 MG TABLET (FP) PO PRN ×2 (10:10→17:58)
[2017-07-05] MEDS: BENZTROPINE MESYLATE 1 MG TABLET (FP) PO PRN ×2 (10:10→17:58)
[2017-07-05] MEDS: THIAMINE HCL 100 MG TABLET (FP) PO SCH (21:46)
[2017-07-06] MEDS: NYSTATIN 500,000 UNITS/5 ML SUSPENSION PO SCH ×2 (00:48→06:44)
[2017-07-06] MEDS: hydrOXYzine PAMOATE 50 MG CAPSULE (FP) PO SCH (06:43)
[2017-07-06] MEDS: CYCLOBENZAPRINE HCL 10 MG TABLET (FP) PO SCH (06:43)
[2017-07-06 07:08] VITALS: BP 126/81; PULSE 77; TEMP 98
[2017-07-06] MEDS: PRENATAL VITAMINS W/ FOLIC ACID TABLET (FP) PO SCH (09:59)
[2017-07-06] MEDS: BUPRENORPHINE HCL/NALOXONE 12 MG-3 MG SL FILM PACKET SL SCH (09:59)
[2017-07-06] MEDS: AMITRIPTYLINE HCL 25 MG TABLET (FP) PO SCH (10:00)
[2017-07-06] MEDS: QUEtiapine FUMARATE 200 MG TABLET PO SCH (10:00)
[2017-07-06] MEDS: HALOPERIDOL 1 MG TABLET (FP) PO PRN (10:01)
[2017-07-06] MEDS: BENZTROPINE MESYLATE 1 MG TABLET (FP) PO PRN (10:01)
[2017-07-06] MEDS: NICOTINE 21 MG/24 HOURS TOPICAL PATCH TD SCH (10:02)
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
--- NOTE | 2017-07-06 14:27 | DS ---
[facility] Detox Discharge Summary Admission Date: 06/20/17 - History Present History: Cocaine Dependence, Opioid Dependence - Physical Exam Results Vital Signs: Vital Signs Temperature 98.0 F 07/06/17 07:07 Pulse Rate 77 07/06/17 07:07 Respiratory Rate 07/06/17 07:07 Blood Pressure 126/81 07/06/17 07:07 O2 Sat by Pulse Oximetry (%) - Treatment Hospital Course: Responded well, Discharged Condition Good - Medication Discharge Medications: Ambulatory Orders Buprenorphine HCl/Naloxone HCl [Suboxone 8 mg-2 mg Sl Tablets] 1 each SL DAILY # 8 tab.subl MDD 1 05/13/17 Buprenorphine HCl/Naloxone HCl [Suboxone 8 mg-2 mg Sl Tablets] 1 each SL DAILY # 30 tab.subl MDD 12 05/20/17 Buprenorphine HCl/Naloxone HCl [Suboxone 8 mg-2 mg Sl Tablets] 1 each SL DAILY # 30 tab.subl MDD 12mg 05/20/17 Buprenorphine HCl/Naloxone HCl [Suboxone 8 mg-2 mg Sl Tablets] 2 each SL DAILY MDD 0 06/16/17 Amitriptyline HCl [Elavil -] 25 mg PO BID@1000,1800 #60 tablet 07/06/17 Benztropine Mesylate [Cogentin -] 0.5 mg PO TID PRN #90 tablet 07/06/17 Quetiapine Fumarate [Seroquel -] 200 mg PO BID@1000,1400 #60 tablet 07/06/17 - AMA Did Patient Leave Against Medical Advice: No (administrative discharge)
--- NOTE | 2017-07-08 15:47 | PN ---
[facility] Progress Note Note: Patient walked in today seeking suboxone at 3:30pm. Patient was administratively discharged on 07/06/17. Today her urine tox is + for benzo, opiates, cocaine and suboxone. Patient with COWS=12. Patient not considered appropriate for suboxone. Referred to methadone program - Александр present and will connect her to [place] methadone program which has openings. Patient may go to ED for symptom management until she can get into methadone program.
== END 2017-07-06 11:16 | disposition left against medical advice (07) | DRG 772 ==
LOC: YASAS 15:56 → Y3E 15:57
PROVIDERS: ADMIT Psychiatry & Neurology Psychiatry; ATTEND Psychiatry & Neurology Psychiatry
PROC: HZ42ZZZ Group Counseling for Substance Abuse Treatment, Cognitive-Behavioral (ICD-10-PCS; principal; 2017-06-20)
DX: F14.20 Cocaine dependence, uncomplicated (principal); F17.213 Nicotine dependence, cigarettes, with withdrawal; F19.24 Other psychoactive substance dependence with psychoactive substance-induced mood disorder; G47.00 Insomnia, unspecified; Z21 Asymptomatic human immunodeficiency virus [HIV] infection status; Z51.81 Encounter for therapeutic drug level monitoring; F91.8 Other conduct disorders; Z91.19 Patient's noncompliance with other medical treatment and regimen
CPT/HCPCS: J0735

== ENCOUNTER 2018-11-18 15:17 | Inpatient (IN) | payer SELFPAY ==
[2018-11-18 15:51] VITALS: BMI 25.3
--- NOTE | 2018-11-18 17:41 | HP ---
COWS - Scale Resting Pulse: 1= [place] 81-100 Sweatin= Chills/Flushing Restless Observation: 3= Extraneous Movement Pupil Size: 1= Pupils >than Normal Bone or Joint Aches: 1= Mild Discomfort Runny Nose/ Eye Tearin= Nasal Congestion GI Upset > 30mins: 1= Stomach Cramp Tremor Observation: 1= Tremor Hunter, Not Seen Yawning Observation: 1= 1-2x During Session Anxiety or Irritability: 1=Feels Anxious/Irritable Goose Flesh Skin: 0=Smooth Skin COWS Score: 12 CIWA Score - Admission Criteria [facility]ASAS Guidelines: Admission for Medically Managed Detox: Requires at least one of the followin. CIWA greater than 12 2. Seizures within the past 24 hours 3. Delirium tremens within the past 24 hours 4. Hallucinations within the past 24 hours 5. Acute intervention needed for co occurring medical disorder 6. Acute intervention needed for co occurring psychiatric disorder 7. Severe withdrawal that cannot be handled at a lower level of care (continued vomiting, continued diarrhea, abnormal vital signs) requiring intravenous medication and/or fluids 8. Admitting History and Physical - Past Medical History ...LMP: 06/02/17 - Smoking History Smoking history: Current every day smoker Have you smoked in the past 12 months: Yes Aproximately how many cigarettes per day: 10 - Alcohol/Substance Use Hx Alcohol Use: Yes (socially) Admission [facility] Chief Complaint: heroin detox Allergies/Adverse Reactions: Allergies Allergy/AdvReac Type Severity Reaction Status Date / Time No Known Allergies Allergy Verified 11/18/18 15:44 History of Present Illness: 38yo with no medical problems. Pt does not work. Says she stopped using all drugs for a year- relapsed about 2 months ago. Pt denies having HIV- in problem list. Denies taking any medications. Pt has no PCP Uses heroin $100/day, no h/o OD, pt advised to go to pharmacy for narcan cocaine- $100/day minimal THC Occ valium use alcohol- 2, 6 packs a day. - Ebola screening Have you traveled outside of the country in the last 21 days: No Have you had contact with anyone from an Ebola affected area: No Patient History - Patient Medical History Hx Anemia: No Hx Asthma: No Hx Chronic Obstructive Pulmonary Disease (COPD): No Hx Cancer: No Hx Cardiac Disorders: No Hx Congestive Heart Failure: No Hx Hypertension: No Hx Hypercholesterolemia: No Hx Pacemaker: No HX Cerebrovascular Accident: No Hx Seizures: No Hx Dementia: No Hx Diabetes: No Hx Gastrointestinal Disorders: No Hx Liver Disease: No Hx Genitourinary Disorders: No Hx Sexually Transmitted Disorders: No Hx Renal Disease (ESRD): No Hx Thyroid Disease: No Hx Human Immunodeficiency Virus (HIV): No (04/27 last negative) Hx Hepatitis C: No Hx Depression: Yes Hx Suicide Attempt: No Hx Bipolar Disorder: No Hx Schizophrenia: No - Patient Surgical History Past Surgical History: No Hx Neurologic Surgery: No Hx Cataract Extraction: No Hx Cardiac Surgery: No Hx Lung Surgery: No Hx Breast Surgery: No Hx Breast Biopsy: No Hx Abdominal Surgery: No Hx Appendectomy: No Hx Cholecystectomy: No Hx Genitourinary Surgery: No Hx Section: No Hx Orthopedic Surgery: No Anesthesia Reaction: No - PPD History Date: 06/18/17 - Reproductive History Last Menstrual Period: 06/02/17 - Smoking Cessation Smoking history: Current every day smoker Have you smoked in the past 12 months: Yes Aproximately how many cigarettes per day: 10 Hx Chewing Tobacco Use: No Initiated information on smoking cessation: Yes 'Breaking Loose' booklet given: 11/18/18 - Substance & Tx. History Substance Use Type: Alcohol, Heroin, Opiates - Substances abused Heroin Substance route: Inhalation Frequency: Daily Amount used: 10 bags Age of first use: 30 Date of last use: 11/18/18 Crack Substance route: Smoking Frequency: Daily Amount used: $100 Age of first use: 22 Date of last use: 11/17/18 Alcohol Substance route: Oral Frequency: Daily Amount used: 2 6pk beer Age of first use: 16 Date of last use: 11/17/18 Admission Physical Exam [facility] - Vital Signs Vital Signs: Vital Signs - 24 hr 11/18/18 15:46 Temperature 97.9 F Pulse Rate 64 Respiratory 18 Rate Blood Pressure 155/90 - Physical General Appearance: Yes: Within Normal Limits HEENTM: Yes: Within Normal Limits, Tm's normal Respiratory: Yes: Within Normal Limits, Lungs Clear Neck: Yes: Within Normal Limits, No masses,lesions,Nodules Cardiology: Yes: Within Normal Limits Abdominal: Yes: Within Normal Limits Genitourinary: Yes: Within Normal Limits Back: Yes: Within Normal Limits Musculoskeletal: Yes: Within Normal Limits Extremities: Yes: Within Normal Limits Neurological: Yes: Within Normal Limits Integumentary: Yes: Within Normal Limits Lymphatic: Yes: Within Normal Limits Breathalyzer - Breathalyzer Breathalyzer: 0 Urine Drug Screen - Test Device Lot number: [id number] Expiration date: 07/09/20 - Control Is test valid?: Yes - Results Drug screen NEGATIVE: No Urine drug screen results: THC-Marijuana, CONSUELO-Cocaine, MOP-Opiates, OXY- Oxycodone, BZO-Benzodiazepines Inpatient Rehab Admission - Rehab Decision to Admit Inpatient rehab admission?: No
[2018-11-18] MEDS ORDERED: cloNIDine HCL 0.1 MG TABLET PO PRN (17:47)
[2018-11-18] MEDS ORDERED: MENTHOL/PHENOL 1 EACH UD MM PRN (17:47)
[2018-11-18] MEDS ORDERED: NALOXONE HCL 0.4 MG/ML VIAL IM PRN (17:47)
[2018-11-18] MEDS ORDERED: MAGNESIUM HYDROX 2400MG/30ML ORAL SUSPENSION 30 ML CUP PO PRN (17:47)
[2018-11-18] MEDS ORDERED: MAG HYDROX/AL HYDROX/SIMETH 30 ML UNIT-DOSE CUP PO PRN (17:47)
[2018-11-18] MEDS ORDERED: ACETAMINOPHEN 325 MG TABLET (FP) PO PRN ×2 (17:47)
[2018-11-18] MEDS ORDERED: BISMUTH SUBSALICYLATE 524 MG/30 ML UD PO PRN (17:47)
[2018-11-18] MEDS ORDERED: IBUPROFEN 400 MG TABLET (FP) PO PRN (17:47)
[2018-11-18] MEDS ORDERED: MAGNESIUM CITRATE 300 ML BOTTLE PO PRN (17:47)
[2018-11-18] MEDS ORDERED: NICOTINE POLACRILEX 2 MG GUM BUC PRN (17:47)
[2018-11-18] MEDS ORDERED: METHADONE HCL 10 MG TABLET (FOR DETOX USE ONLY) PO ONE (18:00)
[2018-11-18] MEDS: clonazePAM 0.5 MG TABLET PO PRN (18:39)
[2018-11-18] MEDS: THIAMINE HCL 100 MG TABLET (FP) PO SCH (22:21)
[2018-11-18] MEDS: MELATONIN 5 MG TABLETS PO PRN (22:21)
[2018-11-19] MEDS ORDERED: METHADONE HCL 5 MG TABLET (FOR DETOX USE ONLY) PO ONE (10:00)
[2018-11-19] MEDS: PRENATAL VITAMINS W/ FOLIC ACID TABLET (FP) PO SCH (10:14)
[2018-11-19] MEDS: clonazePAM 0.5 MG TABLET PO PRN ×2 (10:15→17:34)
[2018-11-19 10:21] LABS: HEMATOCRIT 33.4 % (32.4-45.2); HEMOGLOBIN 11.1 GM/dL (10.7-15.3); MCH 29.9 pg (25.7-33.7); MCHC 33.1 g/dl (32.0-36.0); MEAN CELL VOLUME 90.2 fl (80-96); MEAN PLT VOLUME 8.2 fl (7.5-11.1); PLATELET COUNT 240 K/MM3 (134-434); RDW 13.1 % (11.6-15.6); WHITE BLOOD COUNT 3.3 K/mm3 (4.0-10.0)
[2018-11-19 10:27] LABS: ALBUMIN 3.2 g/dl (3.4-5.0); BILIRUBIN,TOTAL 0.3 mg/dL (0.2-1); BLOOD UREA NITROGEN 8.7 mg/dL (7-18); CALCIUM 8.6 mg/dL (8.5-10.1); CREATININE 0.9 mg/dL (0.55-1.3); POTASSIUM 4.4 mmol/L (3.5-5.1); TOT PROT 5.7 g/dl (6.4-8.2)
[2018-11-19] MEDS: hydrOXYzine PAMOATE 25 MG CAPSULE (FP) PO PRN ×2 (11:10→17:34)
[2018-11-19] MEDS: METHOCARBAMOL 500 MG TABLET PO PRN ×2 (12:25→22:21)
--- NOTE | 2018-11-19 18:05 | PN ---
[facility] COWS - Scale Resting Pulse: 0= [place] 80 or Below Sweatin= Chills/Flushing Restless Observation: 1= Difficult to Sit Still Pupil Size: 0= Normal to Room Light Bone or Joint Aches: 1= Mild Discomfort Runny Nose/ Eye Tearin= Nasal Congestion GI Upset > 30mins: 1= Stomach Cramp Tremor Observation of Outstretched Hands: 0= None Yawning Observation: 1= 1-2x During Session Anxiety or Irritability: 2=Irritable/Anxious Goose Flesh Skin: 3=Piloerection COWS Score: 11 [facility] Progress Note (SOAP) Subjective: Sweating, Anxious, Restless, Interrupted Sleep, Body Aches. Objective: PATIENT A & O X 3, OBSERVED AMBULATING ON DETOX UNIT UNASSISTED. IN NO ACUTE DISTRESS. 11/19/18 18:04 Vital Signs Temperature 99.2 F 11/19/18 13:21 Pulse Rate 48 L 11/19/18 13:21 Respiratory Rate 18 11/19/18 13:21 Blood Pressure 103/59 L 11/19/18 13:21 O2 Sat by Pulse Oximetry (%) Laboratory Tests 11/18/18 11/19/18 11/19/18 16:30 08:10 08:10 WBC 3.3 L RBC 3.70 Hgb 11.1 Hct 33.4 MCV 90.2 MCH 29.9 MCHC 33.1 RDW 13.1 Plt Count 240 MPV 8.2 Sodium 140 Potassium 4.4 Chloride 108 H Carbon Dioxide 26 Anion Gap 6 L BUN 8.7 Creatinine 0.9 Est GFR (CKD-EPI)AfAm 94.01 Est GFR (CKD-EPI)NonAf 81.11 Random Glucose 92 Calcium 8.6 Total Bilirubin 0.3 AST 13 L ALT 18 Alkaline Phosphatase 42 L Total Protein 5.7 L Albumin 3.2 L POC Urine HCG, Qual Negative RPR Titer 11/19/18 08:10 WBC RBC Hgb Hct MCV MCH MCHC RDW Plt Count MPV Sodium Potassium Chloride Carbon Dioxide Anion Gap BUN Creatinine Est GFR (CKD-EPI)AfAm Est GFR (CKD-EPI)NonAf Random Glucose Calcium Total Bilirubin AST ALT Alkaline Phosphatase Total Protein Albumin POC Urine HCG, Qual RPR Titer Nonreactive LABS NOTED. Assessment: 11/19/18 18:05 WITHDRAWAL SYMPTOMS. LEUKOPENIA. Plan: CONTINUE DETOX. INCREASE DAILY PO WATER INTAKE.
[2018-11-19] MEDS: THIAMINE HCL 100 MG TABLET (FP) PO SCH (22:20)
[2018-11-19] MEDS: MELATONIN 5 MG TABLETS PO PRN (22:21)
[2018-11-20] MEDS: METHOCARBAMOL 500 MG TABLET PO PRN ×3 (08:28→22:16)
[2018-11-20] MEDS: clonazePAM 0.5 MG TABLET PO PRN ×3 (08:28→22:15)
[2018-11-20] MEDS: hydrOXYzine PAMOATE 25 MG CAPSULE (FP) PO PRN ×3 (08:28→22:16)
[2018-11-20] MEDS: PRENATAL VITAMINS W/ FOLIC ACID TABLET (FP) PO SCH (09:11)
[2018-11-20] MEDS ORDERED: METHADONE HCL 10 MG TABLET (FOR DETOX USE ONLY) PO ONE (10:00)
[2018-11-20] MEDS: ONDANSETRON *ODT* 4 MG TABLET SL PRN ×2 (11:25→19:31)
--- NOTE | 2018-11-20 17:55 | PN ---
S COWS - Scale Resting Pulse: 0= [place] 80 or Below Sweatin= No chills or Flushing Restless Observation: 1= Difficult to Sit Still Pupil Size: 0= Normal to Room Light Bone or Joint Aches: 2= Severe Diffuse Aches Runny Nose/ Eye Tearin= None GI Upset > 30mins: 2= Nausea/Diarrhea Tremor Observation of Outstretched Hands: 0= None Yawning Observation: 1= 1-2x During Session Anxiety or Irritability: 2=Irritable/Anxious Goose Flesh Skin: 3=Piloerection COWS Score: 11 S Progress Note (SOAP) Subjective: Anxious, Body Aches, Diarrhea, Nausea. Objective: PATIENT A & O X 3, OBSERVED AMBULATING ON DETOX UNIT UNASSISTED. IN NO ACUTE DISTRESS. 11/20/18 17:54 Vital Signs Temperature 99.4 F 11/20/18 17:45 Pulse Rate 52 L 11/20/18 17:45 Respiratory Rate 16 11/20/18 17:45 Blood Pressure 102/62 11/20/18 17:45 O2 Sat by Pulse Oximetry (%) Laboratory Tests 11/18/18 11/19/18 11/19/18 16:30 08:10 08:10 WBC 3.3 L RBC 3.70 Hgb 11.1 Hct 33.4 MCV 90.2 MCH 29.9 MCHC 33.1 RDW 13.1 Plt Count 240 MPV 8.2 Sodium 140 Potassium 4.4 Chloride 108 H Carbon Dioxide 26 Anion Gap 6 L BUN 8.7 Creatinine 0.9 Est GFR (CKD-EPI)AfAm 94.01 Est GFR (CKD-EPI)NonAf 81.11 Random Glucose 92 Calcium 8.6 Total Bilirubin 0.3 AST 13 L ALT 18 Alkaline Phosphatase 42 L Total Protein 5.7 L Albumin 3.2 L POC Urine HCG, Qual Negative RPR Titer 11/19/18 08:10 WBC RBC Hgb Hct MCV MCH MCHC RDW Plt Count MPV Sodium Potassium Chloride Carbon Dioxide Anion Gap BUN Creatinine Est GFR (CKD-EPI)AfAm Est GFR (CKD-EPI)NonAf Random Glucose Calcium Total Bilirubin AST ALT Alkaline Phosphatase Total Protein Albumin POC Urine HCG, Qual RPR Titer Nonreactive LABS NOTED. 11/20/18 17:55 Assessment: 11/20/18 17:55 WITHDRAWAL SYMPTOMS. LEUKOPENIA. Plan: CONTINUE DETOX. INCREASE DAILY PO WATER INTAKE. PRN ZOFRAN SL FOR NAUSEA. PRN PEPTO-BISMOL PO FOR DIARRHEA.
[2018-11-20] MEDS: THIAMINE HCL 100 MG TABLET (FP) PO SCH (22:15)
[2018-11-20] MEDS: MELATONIN 5 MG TABLETS PO PRN (22:16)
[2018-11-21] MEDS ORDERED: METHADONE HCL 5 MG TABLET (FOR DETOX USE ONLY) PO ONE (06:00)
[2018-11-21] MEDS: clonazePAM 0.5 MG TABLET PO PRN ×3 (08:47→22:02)
[2018-11-21] MEDS: hydrOXYzine PAMOATE 25 MG CAPSULE (FP) PO PRN ×3 (08:47→21:12)
[2018-11-21] MEDS: METHOCARBAMOL 500 MG TABLET PO PRN ×3 (08:48→22:02)
[2018-11-21] MEDS: ONDANSETRON *ODT* 4 MG TABLET SL PRN (08:49)
[2018-11-21] MEDS ORDERED: METHADONE HCL 10 MG TABLET (FOR DETOX USE ONLY) PO ONE (10:00)
[2018-11-21] MEDS: PRENATAL VITAMINS W/ FOLIC ACID TABLET (FP) PO SCH (10:48)
--- NOTE | 2018-11-21 13:06 | PN ---
[facility] COWS - Scale Resting Pulse: 0= [place] 80 or Below Sweatin= Chills/Flushing Restless Observation: 1= Difficult to Sit Still Pupil Size: 0= Normal to Room Light Bone or Joint Aches: 0= None Runny Nose/ Eye Tearin= None GI Upset > 30mins: 0= None Tremor Observation of Outstretched Hands: 0= None Yawning Observation: 1= 1-2x During Session Anxiety or Irritability: 1=Feels Anxious/Irritable Goose Flesh Skin: 0=Smooth Skin COWS Score: 4 [facility] Progress Note (SOAP) Subjective: c/o sweats, anxiety, and irritability. Objective: 11/21/18 13:04 Vital Signs 11/21/18 11/21/18 07:03 09:39 Temperature 98.5 F 98.0 F Pulse Rate 45 L 55 L Respiratory 18 16 Rate Blood Pressure 92/49 L 100/59 L Lab Results WBC 3.3 K/mm3 (4.0-10.0) L 11/19/18 08:10 RBC 3.70 M/mm3 (3.60-5.2) 11/19/18 08:10 Hgb 11.1 GM/dL (10.7-15.3) 11/19/18 08:10 Hct 33.4 % (32.4-45.2) 11/19/18 08:10 MCV 90.2 fl (80-96) 11/19/18 08:10 MCHC 33.1 g/dl (32.0-36.0) 11/19/18 08:10 RDW 13.1 % (11.6-15.6) 11/19/18 08:10 Plt Count 240 K/MM3 (134-434) 11/19/18 08:10 Sodium 140 mmol/L (136-145) 11/19/18 08:10 Potassium 4.4 mmol/L (3.5-5.1) 11/19/18 08:10 Chloride 108 mmol/L (98-107) H 11/19/18 08:10 Carbon Dioxide 26 mmol/L (21-32) 11/19/18 08:10 Anion Gap 6 MMOL/L (8-16) L 11/19/18 08:10 BUN 8.7 mg/dL (7-18) 11/19/18 08:10 Creatinine 0.9 mg/dL (0.55-1.3) 11/19/18 08:10 Random Glucose 92 mg/dL (74-106) 11/19/18 08:10 Calcium 8.6 mg/dL (8.5-10.1) 11/19/18 08:10 Labs noted. Assessment: 11/21/18 13:04 AOX3, in no acute respiratory distress. Full ROM, ambulating in the unit. Withdrawal symptoms. For d/c tomorrow. Plan: continue detox. D/C in AM.
[2018-11-21] MEDS: THIAMINE HCL 100 MG TABLET (FP) PO SCH (21:12)
[2018-11-21] MEDS: MELATONIN 5 MG TABLETS PO PRN (21:13)
[2018-11-22] MEDS: METHOCARBAMOL 500 MG TABLET PO PRN (05:43)
[2018-11-22] MEDS: hydrOXYzine PAMOATE 25 MG CAPSULE (FP) PO PRN (05:43)
[2018-11-22] MEDS ORDERED: METHADONE HCL 5 MG TABLET (FOR DETOX USE ONLY) PO ONE (06:00)
[2018-11-22] MEDS: clonazePAM 0.5 MG TABLET PO PRN (06:21)
[2018-11-22 09:53] VITALS: BP 127/70; PULSE 58; TEMP 98.6
--- NOTE | 2018-11-22 13:50 | DS ---
[facility] Detox Discharge Summary Admission Date: 11/18/18 Discharge Date: 11/22/18 - History Present History: Alcohol Dependence, Cocaine Dependence, Opioid Dependence Additional Comments: Pt is medically cleared and discharge today. Pt completed her detox protocol. Pt is encouraged to follow-up with CD outpatient program and also to follow-up with her pmd. Pt verbalized understanding of the information given. Pt is alert and oriented x3 and in no respiratory distress. Pertinent Past History: H/O Heroin, cocaine, and alcohol use disorder. - Physical Exam Results Vital Signs: Vital Signs Temperature 98.6 F 11/22/18 09:52 Pulse Rate 58 L 11/22/18 09:52 Respiratory Rate 18 11/22/18 09:52 Blood Pressure 127/70 11/22/18 09:52 O2 Sat by Pulse Oximetry (%) Vital Signs 11/22/18 11/22/18 06:39 09:52 Temperature 97.6 F 98.6 F Pulse Rate 65 58 L Respiratory 16 18 Rate Blood Pressure 110/65 127/70 Lab Results WBC 3.3 K/mm3 (4.0-10.0) L 11/19/18 08:10 RBC 3.70 M/mm3 (3.60-5.2) 11/19/18 08:10 Hgb 11.1 GM/dL (10.7-15.3) 11/19/18 08:10 Hct 33.4 % (32.4-45.2) 11/19/18 08:10 MCV 90.2 fl (80-96) 11/19/18 08:10 MCHC 33.1 g/dl (32.0-36.0) 11/19/18 08:10 RDW 13.1 % (11.6-15.6) 11/19/18 08:10 Plt Count 240 K/MM3 (134-434) 11/19/18 08:10 Sodium 140 mmol/L (136-145) 11/19/18 08:10 Potassium 4.4 mmol/L (3.5-5.1) 11/19/18 08:10 Chloride 108 mmol/L (98-107) H 11/19/18 08:10 Carbon Dioxide 26 mmol/L (21-32) 11/19/18 08:10 Anion Gap 6 MMOL/L (8-16) L 11/19/18 08:10 BUN 8.7 mg/dL (7-18) 11/19/18 08:10 Creatinine 0.9 mg/dL (0.55-1.3) 11/19/18 08:10 Random Glucose 92 mg/dL (74-106) 11/19/18 08:10 Calcium 8.6 mg/dL (8.5-10.1) 11/19/18 08:10 Labs noted. Pertinent Admission Physical Exam Findings: withdrawal symptoms. - Treatment Hospital Course: Detox Protocol Followed, Detoxed Safely, Responded well, Discharged Condition Good - Medication Discharge Medications: Ambulatory Orders NK [No Known Home Medication] 11/18/18 - Diagnosis (1) Opioid dependence with withdrawal Status: Acute (2) Cocaine dependence Status: Chronic Qualifiers: Substance use status: uncomplicated Qualified Code(s): F14.20 - Cocaine dependence, uncomplicated (3) Drug-induced mood disorder Status: Chronic (4) Nicotine dependence Status: Chronic Qualifiers: Nicotine product type: cigarettes Substance use status: in withdrawal Qualified Code(s): F17.213 - Nicotine dependence, cigarettes, with withdrawal - AMA Did Patient Leave Against Medical Advice: No
== END 2018-11-22 08:52 | disposition home or self-care (01) | DRG 773 ==
LOC: YASAS 15:17 → Y3N 17:55
PROVIDERS: ADMIT Allergy & Immunology; ATTEND Allergy & Immunology
PROC: HZ2ZZZZ Detoxification Services for Substance Abuse Treatment (ICD-10-PCS; principal; 2018-11-18)
DX: F10.230 Alcohol dependence with withdrawal, uncomplicated (principal); F11.23 Opioid dependence with withdrawal; F14.20 Cocaine dependence, uncomplicated; F17.210 Nicotine dependence, cigarettes, uncomplicated; F19.24 Other psychoactive substance dependence with psychoactive substance-induced mood disorder; D72.819 Decreased white blood cell count, unspecified
CPT/HCPCS: 36415; 80053; 81025; 85027; 86593; J0735; Q0162

== ENCOUNTER 2019-10-15 15:22 | Inpatient (IN) | payer OTHER ==
--- NOTE | 2019-10-15 16:22 | BHS.RME ---
Substance Use & Tx History - Substance Use History Heroin Substance amount: 1 bundle Frequency of use: Daily Substance route: Inhalation (ex: sniffing or snorting) Date of Last Use: 10/15/19 Cocaine-Crack Substance amount: 100 dollars Frequency of use: Daily Substance route: Smoking Date of Last Use: 10/15/19 Physical/Psych/Mental Status - Behavior General Behavior: Increased activity (restlessness, agitation) Eye Contact: Normal - Physical Health Problems Is patient presently having any pain?: No Does patient presently have any injuries (include location): No Does patient currently have a fever: No Is patient : No COWS - Scale Resting Pulse: 0= [place] 80 or Below Sweatin= No chills or Flushing Restless Observation: 5= Unable to Sit Still Pupil Size: 0= Normal to Room Light Bone or Joint Aches: 0= None Runny Nose/ Eye Tearin= None GI Upset > 30mins: 0= None Tremor Observation: 0= None Yawning Observation: 1= 1-2x During Session Anxiety or Irritability: 0= None Goose Flesh Skin: 0=Smooth Skin COWS Score: 6
--- NOTE | 2019-10-15 18:00 | HP ---
"COWS - Scale Resting Pulse: 0= [place] 80 or Below Sweatin= Chills/Flushing Restless Observation: 5= Unable to Sit Still Pupil Size: 0= Normal to Room Light Bone or Joint Aches: 1= Mild Discomfort Runny Nose/ Eye Tearin= Nasal Congestion GI Upset > 30mins: 1= Stomach Cramp Tremor Observation: 2= Slight Tremor Visible Yawning Observation: 1= 1-2x During Session Anxiety or Irritability: 2=Irritable/Anxious Goose Flesh Skin: 0=Smooth Skin COWS Score: 14 CIWA Score - Admission Criteria OASAS Guidelines: Admission for Medically Managed Detox: Requires at least one of the followin. CIWA greater than 12 2. Seizures within the past 24 hours 3. Delirium tremens within the past 24 hours 4. Hallucinations within the past 24 hours 5. Acute intervention needed for co occurring medical disorder 6. Acute intervention needed for co occurring psychiatric disorder 7. Severe withdrawal that cannot be handled at a lower level of care (continued vomiting, continued diarrhea, abnormal vital signs) requiring intravenous medication and/or fluids 8. Admitting History and Physical - Admission Chief Complaint: opioid withdrawal symptoms History Source: Patient Limitations to Obtaining History: No Limitations - Past Medical History ...LMP: 11/11/18 - Smoking History Smoking history: Current every day smoker Have you smoked in the past 12 months: Yes Aproximately how many cigarettes per day: 10 - Alcohol/Substance Use Hx Alcohol Use: Yes (socially) Admission [facility] Chief Complaint: opioid withdrawal symptoms Allergies/Adverse Reactions: Allergies Allergy/AdvReac Type Severity Reaction Status Date / Time No Known Allergies Allergy Verified 11/18/18 15:44 History of Present Illness: Patient is a 39 yo, homeless female with hx of opioid dependence and cocaine dependence is here seeking inpatient detox d/t withdrawal symptoms. Patient denies hx of overdose. Reports occasional use of street suboxone to prevent withdrawal, reports does not recall date of last use. Utox positive for MOP, OXY, BUP, MTD, CONSUELO, BZO, denies use of any other illicit substances. Denies any recent hospitalization in the last six months. PMHX: unintentional weight loss. Psych: anxiety and insomnia. Denies suicidal / homicidal ideation. Last detox [facility] one month ago. Search Terms: briana gilbert, 1980Search Date: 10/15/2019 18:08:34 PM This report was requested by: Zina Collado | Reference #: [id number] There are no results for the search terms that you entered. Exam Limitations: No Limitations - Review of Systems Constitutional: Chills, Loss of Appetite, Changes in sleep, Weakness, Unintentional Wgt. Loss EENT: reports: No Symptoms Reported Respiratory: reports: No Symptoms reported Cardiac: reports: No Symptoms Reported GI: reports: Poor Appetite, Poor Fluid Intake, Abdominal cramping : reports: No Symptoms Reported Musculoskeletal: reports: Back Pain Integumentary: reports: No Symptoms Reported Neuro: reports: No Symptoms reported Endocrine: reports: Increased Thirst Hematology: reports: No Symptoms Reported Psychiatric: reports: Orientated x3, Anxious Other Systems: Reviewed and Negative Patient History - Patient Medical History Hx Anemia: No Hx Asthma: No Hx Chronic Obstructive Pulmonary Disease (COPD): No Hx Cancer: No Hx Cardiac Disorders: No Hx Congestive Heart Failure: No Hx Hypertension: No Hx Hypercholesterolemia: No Hx Pacemaker: No HX Cerebrovascular Accident: No Hx Seizures: No Hx Dementia: No Hx Diabetes: No Hx Gastrointestinal Disorders: No Hx Liver Disease: No Hx Genitourinary Disorders: No Hx Sexually Transmitted Disorders: No Hx Renal Disease (ESRD): No Hx Thyroid Disease: No Hx Human Immunodeficiency Virus (HIV): No (04/27 last negative) Hx Hepatitis C: No Hx Depression: Yes Hx Suicide Attempt: No Hx Bipolar Disorder: No Hx Schizophrenia: No - Patient Surgical History Past Surgical History: No Hx Neurologic Surgery: No Hx Cataract Extraction: No Hx Cardiac Surgery: No Hx Lung Surgery: No Hx Breast Surgery: No Hx Breast Biopsy: No Hx Abdominal Surgery: No Hx Appendectomy: No Hx Cholecystectomy: No Hx Genitourinary Surgery: No Hx Section: No Hx Orthopedic Surgery: No Anesthesia Reaction: No - PPD History Previous Implant?: Yes Documented Results: Negative w/proof Date: 11/20/18 PPD to be Administered?: Yes - Reproductive History Patient is a Female of Child Bearing Age (11 -55 yrs old): Yes Last Menstrual Period: 11/11/18 Patient : No - Smoking Cessation Smoking history: Current every day smoker Have you smoked in the past 12 months: Yes Aproximately how many cigarettes per day: 10 Hx Chewing Tobacco Use: No Initiated information on smoking cessation: Yes 'Breaking Loose' booklet given: 10/15/19 - Substance & Tx. History Hx Alcohol Use: No Hx Substance Use: Yes Substance Use Type: Cocaine, Heroin Hx Substance Use Treatment: Yes ([facility] one month ago) - Substances abused Heroin Substance route: Inhalation Frequency: Daily Amount used: 1 bundle Age of first use: 30 Date of last use: 10/15/19 Crack Substance route: Smoking Frequency: Daily Amount used: $100 Age of first use: 22 Date of last use: 10/15/19 Admission Physical Exam [facility] - Physical General Appearance: Yes: Disheveled, Mild Distress, Thin, Sweating, Anxious HEENTM: Yes: EOMI, Hearing grossly Normal, Normal ENT Inspection, Normocephalic, Normal Voice, AIYANA, Pharynx Normal, Tm's normal Respiratory: Yes: Chest Non-Tender, Lungs Clear, Normal Breath Sounds, No Respiratory Distress, No Accessory Muscle Use Neck: Yes: Within Normal Limits Breast: Yes: Breast Exam Deferred Cardiology: Yes: Regular Rhythm, Regular Rate Abdominal: Yes: Normal Bowel Sounds, Non Tender, Flat, Soft Genitourinary: Yes: Within Normal Limits Back: Yes: Normal Inspection Musculoskeletal: Yes: full range of Motion, Gait Steady, Pelvis Stable Extremities: Yes: Normal Capillary Refill, Normal Inspection, Normal Range of Mo tion, Non-Tender 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 intact, Fully Oriented, Alert, Motor Strength 5/5, Normal Response, Depressed Affect Integumentary: Yes: Normal Color, Warm, Clammy Cleared for Admission [facility] - Detox or Rehab [facility] Level of Care: Medically Managed Detox Regimen/Protocol: Methadone Breathalyzer - Breathalyzer Breathalyzer: 0 Urine Drug Screen - Test Device Lot number: [id number] Expiration date: 07/09/20 - Control Is test valid?: Yes - Results Drug screen NEGATIVE: No Urine drug screen results: THC-Marijuana, CONSUELO-Cocaine, MOP-Opiates, OXY- Oxycodone, BZO-Benzodiazepines Inpatient Rehab Admission - Rehab Decision to Admit Inpatient rehab admission?: No"
[2019-10-15 18:09] VITALS: BMI 18.6
[2019-10-15] MEDS ORDERED: ACETAMINOPHEN 325 MG TABLET (FP) PO PRN ×2 (18:09)
[2019-10-15] MEDS ORDERED: NICOTINE POLACRILEX 2 MG GUM BUC PRN (18:09)
[2019-10-15] MEDS ORDERED: IBUPROFEN 400 MG TABLET (FP) PO PRN (18:09)
[2019-10-15] MEDS ORDERED: MAGNESIUM CITRATE 300 ML BOTTLE PO PRN (18:09)
[2019-10-15] MEDS ORDERED: MENTHOL/PHENOL 1 EACH UD MM PRN (18:09)
[2019-10-15] MEDS ORDERED: MAGNESIUM HYDROX 2400MG/30ML ORAL SUSPENSION 30 ML CUP PO PRN (18:09)
[2019-10-15] MEDS ORDERED: BISMUTH SUBSALICYLATE 524 MG/30 ML UD PO PRN (18:09)
[2019-10-15] MEDS ORDERED: METHADONE HCL 10 MG TABLET (FOR DETOX USE ONLY) PO ONE (18:45)
[2019-10-15] MEDS: diazePAM 5 MG TABLET PO PRN (20:02)
[2019-10-15] MEDS: hydrOXYzine PAMOATE 25 MG CAPSULE (FP) PO PRN (22:48)
[2019-10-15] MEDS: THIAMINE HCL 100 MG TABLET (FP) PO SCH (22:49)
[2019-10-15] MEDS: MELATONIN 5 MG TABLETS PO SCH (22:49)
[2019-10-16] MEDS: diazePAM 5 MG TABLET PO PRN ×3 (05:48→22:47)
[2019-10-16] MEDS ORDERED: METHADONE HCL 5 MG TABLET (FOR DETOX USE ONLY) ONE (09:55)
[2019-10-16] MEDS ORDERED: METHADONE HCL 10 MG TABLET (FOR DETOX USE ONLY) ONE (09:55)
[2019-10-16] MEDS ORDERED: METHADONE (DETOX) 20 MG, METHADONE (DETOX) 5 MG PO ONE (10:00)
[2019-10-16 10:13] LABS: HEMATOCRIT 35.8 % (32.4-45.2); MCH 30.3 pg (25.7-33.7); MCHC 33.4 g/dl (32.0-36.0); MEAN CELL VOLUME 90.8 fl (80-96); PLATELET COUNT 306 K/MM3 (134-434); RBC 3.95 M/mm3 (3.60-5.2); RDW 13.2 % (11.6-15.6); WHITE BLOOD COUNT 3.8 K/mm3 (4.0-10.0)
--- NOTE | 2019-10-16 10:14 | PN ---
S COWS - Scale Resting Pulse: 0= [place] 80 or Below Sweatin= Beads of Sweat on Face Restless Observation: 1= Difficult to Sit Still Pupil Size: 0= Normal to Room Light Bone or Joint Aches: 2= Severe Diffuse Aches Runny Nose/ Eye Tearin= None GI Upset > 30mins: 0= None Tremor Observation of Outstretched Hands: 2= Slight Tremor Visible Yawning Observation: 1= 1-2x During Session Anxiety or Irritability: 2=Irritable/Anxious Goose Flesh Skin: 0=Smooth Skin COWS Score: 11 S Progress Note (SOAP) Subjective: c/o muscle aches, sweats, anxiety, and shakes. Objective: 10/16/19 10:14 Vital Signs 10/16/19 10/16/19 06:40 09:43 Temperature 98.1 F 97.3 F L Pulse Rate 59 L 86 Respiratory 18 18 Rate Blood Pressure 101/62 128/85 O2 Sat by Pulse 98 98 Oximetry (%) Laboratory Last Values WBC 3.8 K/mm3 (4.0-10.0) L 10/16/19 07:25 RBC 3.95 M/mm3 (3.60-5.2) 10/16/19 07:25 Hgb 12.0 GM/dL (10.7-15.3) 10/16/19 07:25 Hct 35.8 % (32.4-45.2) 10/16/19 07:25 MCV 90.8 fl (80-96) 10/16/19 07:25 MCH 30.3 pg (25.7-33.7) 10/16/19 07:25 MCHC 33.4 g/dl (32.0-36.0) 10/16/19 07:25 RDW 13.2 % (11.6-15.6) 10/16/19 07:25 Plt Count 306 K/MM3 (134-434) D 10/16/19 07:25 MPV 8.0 fl (7.5-11.1) 10/16/19 07:25 Sodium 139 mmol/L (136-145) 10/16/19 07:25 Potassium 4.2 mmol/L (3.5-5.1) 10/16/19 07:25 Chloride 106 mmol/L (98-107) 10/16/19 07:25 Carbon Dioxide 27 mmol/L (21-32) 10/16/19 07:25 Anion Gap 6 MMOL/L (8-16) L 10/16/19 07:25 BUN 28.8 mg/dL (7-18) H 10/16/19 07:25 Creatinine 1.2 mg/dL (0.55-1.3) 10/16/19 07:25 Est GFR (CKD-EPI)AfAm 65.93 10/16/19 07:25 Est GFR (CKD-EPI)NonAf 56.88 10/16/19 07:25 Random Glucose 86 mg/dL (74-106) 10/16/19 07:25 Calcium 8.6 mg/dL (8.5-10.1) 10/16/19 07:25 Total Bilirubin 0.2 mg/dL (0.2-1) 10/16/19 07:25 AST 14 U/L (15-37) L 10/16/19 07:25 ALT 24 U/L (13-61) 10/16/19 07:25 Alkaline Phosphatase 63 U/L (45-117) 10/16/19 07:25 Total Protein 5.9 g/dl (6.4-8.2) L 10/16/19 07:25 Albumin 2.8 g/dl (3.4-5.0) L 10/16/19 07:25 Syphilis Serology Non-reactive (NONREACTIVE) 10/16/19 07:25 Labs noted. Assessment: 10/16/19 10:14 AOX3, in no acute respiratory distress. Full ROM, ambulating in the unit. Withdrawal symptoms. Plan: continue detox.
[2019-10-16 10:27] LABS: ALBUMIN 2.8 g/dl (3.4-5.0); BLOOD UREA NITROGEN 28.8 mg/dL (7-18); CALCIUM 8.6 mg/dL (8.5-10.1); CREATININE 1.2 mg/dL (0.55-1.3); POTASSIUM 4.2 mmol/L (3.5-5.1)
[2019-10-16 10:29] LABS: BILIRUBIN,TOTAL 0.2 mg/dL (0.2-1); TOT PROT 5.9 g/dl (6.4-8.2)
[2019-10-16] MEDS: PRENATAL VITAMINS W/ FOLIC ACID TABLET (FP) PO SCH (10:53)
[2019-10-16] MEDS: NICOTINE 7 MG/24 HOURS TOPICAL PATCH TD SCH (10:54)
--- NOTE | 2019-10-16 15:00 | EKG ---
Test Reason : Blood Pressure : / mmHG Vent. Rate : 065 BPM Atrial Rate : 065 BPM P-R Int : 128 ms QRS Dur : 086 ms QT Int : 438 ms P-R-T Axes : 074 071 065 degrees QTc Int : 455 ms NORMAL SINUS RHYTHM T WAVE ABNORMALITY, CONSIDER ANTERIOR ISCHEMIA ABNORMAL ECG WHEN COMPARED WITH ECG OF 16-JUN-2017 18:44, NONSPECIFIC T WAVE ABNORMALITY, WORSE IN INFERIOR LEADS T WAVE INVERSION NOW EVIDENT IN ANTERIOR LEADS Confirmed by Sourav Evans ([id number]) on 10/16/2019 3:00:17 PM Referred By: Confirmed By:Sourav Evans
--- NOTE | 2019-10-16 16:29 | CONSULT ---
[facility] Psychiatric Consult - Data Date of interview: 10/16/19 Admission source: [facility] Identifying data: Revisit to [facility] and admission to [address] [place] [address] for this 39 y/o AA female self-referred for detoxification treatment. MERLYN issues : crack/cocaine, heroin, nicotine. Patient is single, a mother of one, homeless, unemployed and deprived of income (no financial assistance). Substance Abuse History: Discussed with the patient. MERLYN profile as follows : Smoking history: Current every day smoker. Have you smoked in the past 12 months: Yes. Approximately how many cigarettes per day: 10. Hx Chewing Tobacco Use: No. Initiated information on smoking cessation: Yes. 'Breaking Loose' booklet given: 10/15/19. - Substance & Tx. History. Hx Alcohol Use: No. Hx Substance Use: Yes. Substance Use Type: Cocaine, Heroin. Hx Substance Use Treatment: Yes ([facility] one month ago). - Substances abused. Heroin. Substance route: Inhalation. Frequency: Daily. Amount used: 1 bundle. Age of first use: 30. Date of last use: 10/15/19. Crack. Substance route: Smoking. Frequency: Daily. Amount used: $100. Age of first use: 22. Date of last use: 10/15/19 Medical History: Patient endorses good general health. Psychiatric History: Patient denies history of psychiatric hospitalizations, OPD care or suicide attempts. Physical/Sexual Abuse/Trauma History: Not discussed. Patient declines. Additional Comment: Urine drug screen results: THC-Marijuana, CONSUELO-Cocaine, MOP- Opiates, OXY-Oxycodone, BZO-Benzodiazepines. Noted. Mental Status Exam - Mental Status Exam Alert and Oriented to: Time, Place, Person Cognitive Function: Good Patient Appearance: Unkempt, Disheveled (thin habitus) Mood: Withdrawn Affect: Mood Congruent, Constricted Patient Behavior: Fatigued, Appropriate, Cooperative Speech Pattern: Clear, Appropriate Voice Loudness: Normal Thought Process: Intact, Goal Oriented Thought Disorder: Not Present Hallucinations: Denies Suicidal Ideation: Denies Homicidal Ideation: Denies Insight/Judgement: Poor Sleep: Well Appetite: Good Gait/Station: Normal Psychiatric Findings - Problem List ([place] 1, 2,3) (1) Opioid dependence with withdrawal Current Visit: Yes Status: Acute (2) Cocaine dependence Current Visit: Yes Status: Chronic Qualifiers: Substance use status: uncomplicated Qualified Code(s): F14.20 - Cocaine dependence, uncomplicated (3) Nicotine dependence Current Visit: Yes Status: Chronic Qualifiers: Nicotine product type: cigarettes Substance use status: in withdrawal Amadeo lified Code(s): F17.213 - Nicotine dependence, cigarettes, with withdrawal (4) Drug-induced mood disorder Current Visit: Yes Status: Suspected - Initial Treatment Plan Initial Treatment Plan: Psychoeducation. Support. Sleep hygiene. Detoxification in progress. Observation.
[2019-10-16] MEDS: MELATONIN 5 MG TABLETS PO SCH (22:44)
[2019-10-16] MEDS: THIAMINE HCL 100 MG TABLET (FP) PO SCH (22:44)
[2019-10-16] MEDS: hydrOXYzine PAMOATE 25 MG CAPSULE (FP) PO PRN (22:46)
[2019-10-17] MEDS: hydrOXYzine PAMOATE 25 MG CAPSULE (FP) PO PRN (05:49)
[2019-10-17] MEDS: diazePAM 5 MG TABLET PO PRN ×4 (05:49→22:01)
[2019-10-17] MEDS ORDERED: METHADONE HCL 10 MG TABLET (FOR DETOX USE ONLY) PO ONE (10:00)
[2019-10-17] MEDS: PRENATAL VITAMINS W/ FOLIC ACID TABLET (FP) PO SCH (10:23)
[2019-10-17] MEDS: NICOTINE 7 MG/24 HOURS TOPICAL PATCH TD SCH (10:23)
--- NOTE | 2019-10-17 13:06 | PN ---
BHS COWS - Scale Resting Pulse: 1= [place] 81-100 Sweatin= Chills/Flushing Restless Observation: 0= Sits Still Pupil Size: 1= Pupils >than Normal Bone or Joint Aches: 1= Mild Discomfort Runny Nose/ Eye Tearin= None GI Upset > 30mins: 1= Stomach Cramp Tremor Observation of Outstretched Hands: 2= Slight Tremor Visible Yawning Observation: 0= None Anxiety or Irritability: 1=Feels Anxious/Irritable Goose Flesh Skin: 0=Smooth Skin COWS Score: 8 BHS Progress Note (SOAP) Subjective: 38 years old female admitted on 10/15/19 for opiate withdrawal sx management treating with methadone detox regiment ate breakfast and lunch in room resting in bed mbi 18.6 continue ensure supplement encourage picking up narcan from pharmacy Objective: 10/17/19 13:08 Vital Signs - 24 hr 10/16/19 10/16/19 10/16/19 13:40 16:45 21:00 Temperature 98.2 F 97.3 F L 98.7 F Pulse Rate 84 72 67 Respiratory 16 16 18 Rate Blood Pressure 105/79 126/79 125/70 O2 Sat by Pulse 98 98 100 Oximetry (%) 10/17/19 10/17/19 06:27 08:59 Temperature 97.5 F L 96.4 F L Pulse Rate 74 90 Respiratory 18 20 Rate Blood Pressure 113/74 119/75 O2 Sat by Pulse 99 99 Oximetry (%) Laboratory Tests 10/15/19 10/16/19 10/16/19 19:20 07:25 07:25 WBC 3.8 L RBC 3.95 Hgb 12.0 Hct 35.8 MCV 90.8 MCH 30.3 MCHC 33.4 RDW 13.2 Plt Count 306 D MPV 8.0 Sodium Potassium Chloride Carbon Dioxide Anion Gap BUN Creatinine Est GFR (CKD-EPI)AfAm Est GFR (CKD-EPI)NonAf Random Glucose Calcium Total Bilirubin AST ALT Alkaline Phosphatase Total Protein Albumin Syphilis Serology Non-reactive COVID-19 (DIXIE) Not detected 10/16/19 07:25 WBC RBC Hgb Hct MCV MCH MCHC RDW Plt Count MPV Sodium 139 Potassium 4.2 Chloride 106 Carbon Dioxide 27 Anion Gap 6 L BUN 28.8 H Creatinine 1.2 Est GFR (CKD-EPI)AfAm 65.93 Est GFR (CKD-EPI)NonAf 56.88 Random Glucose 86 Calcium 8.6 Total Bilirubin 0.2 AST 14 L ALT 24 Alkaline Phosphatase 63 Total Protein 5.9 L Albumin 2.8 L Syphilis Serology COVID-19 (DIXIE) lab noted renal insufficient repeat bun 10/17/19 13:10 Assessment: 10/17/19 13:10 opiate withdrawal Plan: methadone regiment
[2019-10-17] MEDS ORDERED: hydrOXYzine PAMOATE 50 MG CAPSULE (FP) PO ONE (13:22)
--- NOTE | 2019-10-17 13:28 | PN ---
BHS Progress Note Note: Patient reports feeling anxious despite taking Vistaril 50 mg po Q 6hrs prn. Will order Vistaril 50 mg po Q 4hrs
[2019-10-17] MEDS: cloNIDine HCL 0.1 MG TABLET PO PRN ×2 (14:44→19:04)
[2019-10-17] MEDS: hydrOXYzine PAMOATE 50 MG CAPSULE (FP) PO PRN ×2 (16:51→22:01)
[2019-10-17] MEDS: METHOCARBAMOL 500 MG TABLET PO PRN (16:51)
[2019-10-17] MEDS ORDERED: hydrOXYzine PAMOATE 25 MG CAPSULE (FP) PO SCH (17:00)
[2019-10-17] MEDS ORDERED: QUEtiapine FUMARATE 50 MG TABLET PO ONE (18:18)
--- NOTE | 2019-10-17 18:22 | PN ---
[facility] Progress Note Note: Patient is very anxious and agitated. She reports history of anxiety, insomnia and that she was prescribed Seroquel in snf. Vital Signs Temperature 97.7 F 10/17/19 16:20 Pulse Rate 87 10/17/19 16:20 Respiratory Rate 18 10/17/19 16:20 Blood Pressure 114/72 10/17/19 16:20 O2 Sat by Pulse Oximetry (%) 99 10/17/19 13:27 Laboratory Last Values WBC 3.8 K/mm3 (4.0-10.0) L 10/16/19 07:25 RBC 3.95 M/mm3 (3.60-5.2) 10/16/19 07:25 Hgb 12.0 GM/dL (10.7-15.3) 10/16/19 07:25 Hct 35.8 % (32.4-45.2) 10/16/19 07:25 MCV 90.8 fl (80-96) 10/16/19 07:25 MCH 30.3 pg (25.7-33.7) 10/16/19 07:25 MCHC 33.4 g/dl (32.0-36.0) 10/16/19 07:25 RDW 13.2 % (11.6-15.6) 10/16/19 07:25 Plt Count 306 K/MM3 (134-434) D 10/16/19 07:25 MPV 8.0 fl (7.5-11.1) 10/16/19 07:25 Sodium 139 mmol/L (136-145) 10/16/19 07:25 Potassium 4.2 mmol/L (3.5-5.1) 10/16/19 07:25 Chloride 106 mmol/L (98-107) 10/16/19 07:25 Carbon Dioxide 27 mmol/L (21-32) 10/16/19 07:25 Anion Gap 6 MMOL/L (8-16) L 10/16/19 07:25 BUN 28.8 mg/dL (7-18) H 10/16/19 07:25 Creatinine 1.2 mg/dL (0.55-1.3) 10/16/19 07:25 Est GFR (CKD-EPI)AfAm 65.93 10/16/19 07:25 Est GFR (CKD-EPI)NonAf 56.88 10/16/19 07:25 Random Glucose 86 mg/dL (74-106) 10/16/19 07:25 Calcium 8.6 mg/dL (8.5-10.1) 10/16/19 07:25 Total Bilirubin 0.2 mg/dL (0.2-1) 10/16/19 07:25 AST 14 U/L (15-37) L 10/16/19 07:25 ALT 24 U/L (13-61) 10/16/19 07:25 Alkaline Phosphatase 63 U/L (45-117) 10/16/19 07:25 Total Protein 5.9 g/dl (6.4-8.2) L 10/16/19 07:25 Albumin 2.8 g/dl (3.4-5.0) L 10/16/19 07:25 Syphilis Serology Non-reactive (NONREACTIVE) 10/16/19 07:25 COVID-19 (DIXIE) Not detected (Not Detected) 10/15/19 19:20 Action: Quetiapine Fumarate (Seroquel) 50mg oral stat dose ordered Psych. Consult ordered
[2019-10-17 18:53] LABS: URINE APPEARANCE CLEAR; URINE BILIRUBIN NEGATIVE (NEGATIVE); URINE COLOR YELLOW; URINE GLUCOSE (UA) NEGATIVE (NEGATIVE); URINE KETONE NEGATIVE (NEGATIVE); URINE LEUK ESTERASE NEGATIVE (NEGATIVE); URINE NITRITE NEGATIVE (NEGATIVE); URINE PROTEIN NEGATIVE (NEGATIVE); URINE UROBILINOGEN 0.2 mg/dL (0.2-1.0)
[2019-10-17] MEDS: THIAMINE HCL 100 MG TABLET (FP) PO SCH (22:00)
[2019-10-17] MEDS: MELATONIN 5 MG TABLETS PO SCH (22:00)
[2019-10-18] MEDS: diazePAM 5 MG TABLET PO PRN ×3 (06:00→18:14)
[2019-10-18] MEDS: hydrOXYzine PAMOATE 50 MG CAPSULE (FP) PO PRN ×4 (06:00→22:13)
[2019-10-18] MEDS: METHOCARBAMOL 500 MG TABLET PO PRN ×3 (06:01→18:14)
[2019-10-18] MEDS ORDERED: METHADONE HCL 10 MG TABLET (FOR DETOX USE ONLY) ONE (09:26)
[2019-10-18] MEDS ORDERED: METHADONE HCL 5 MG TABLET (FOR DETOX USE ONLY) ONE (09:26)
[2019-10-18] MEDS ORDERED: METHADONE (DETOX) 10 MG, METHADONE (DETOX) 5 MG PO ONE (10:00)
--- NOTE | 2019-10-18 10:03 | PN ---
BHS COWS - Scale Resting Pulse: 0= [place] 80 or Below Sweatin= No chills or Flushing Restless Observation: 0= Sits Still Pupil Size: 0= Normal to Room Light Bone or Joint Aches: 0= None Runny Nose/ Eye Tearin= None GI Upset > 30mins: 0= None Tremor Observation of Outstretched Hands: 2= Slight Tremor Visible Yawning Observation: 0= None Anxiety or Irritability: 4=Extreme Anxiety Goose Flesh Skin: 0=Smooth Skin COWS Score: 6 BHS Progress Note (SOAP) Subjective: 39 years old female was admitted on 10/15/19 for opiate withdrawal sx management treating with methadone detox regiment ms gilbert demands valium 10 mg every 4 hours for anxiety discussing addictive potential and purpose of detoxing Objective: 10/18/19 10:10 Vital Signs - 24 hr 10/17/19 10/17/19 10/17/19 13:27 16:20 19:23 Temperature 96.5 F L 97.7 F Pulse Rate 71 87 Respiratory 16 18 Rate Blood Pressure 132/70 114/72 110/68 O2 Sat by Pulse 99 Oximetry (%) 10/17/19 10/18/19 10/18/19 20:32 06:59 09:20 Temperature 97.1 F L 97.6 F 97.3 F L Pulse Rate 86 51 L 103 H Respiratory 16 18 16 Rate Blood Pressure 112/73 119/67 120/76 O2 Sat by Pulse 98 97 Oximetry (%) Laboratory Tests 10/15/19 10/16/19 10/16/19 19:20 07:25 07:25 WBC 3.8 L RBC 3.95 Hgb 12.0 Hct 35.8 MCV 90.8 MCH 30.3 MCHC 33.4 RDW 13.2 Plt Count 306 D MPV 8.0 Sodium Potassium Chloride Carbon Dioxide Anion Gap BUN Creatinine Est GFR (CKD-EPI)AfAm Est GFR (CKD-EPI)NonAf Random Glucose Calcium Total Bilirubin AST ALT Alkaline Phosphatase Total Protein Albumin Urine Color Urine Appearance Urine pH Ur Specific Platter Urine Protein Urine Glucose (UA) Urine Ketones Urine Blood Urine Nitrite Urine Bilirubin Urine Urobilinogen Ur Leukocyte Esterase Syphilis Serology Non-reactive COVID-19 (DIXIE) Not detected 10/16/19 10/17/19 07:25 15:29 WBC RBC Hgb Hct MCV MCH MCHC RDW Plt Count MPV Sodium 139 Potassium 4.2 Chloride 106 Carbon Dioxide 27 Anion Gap 6 L BUN 28.8 H Creatinine 1.2 Est GFR (CKD-EPI)AfAm 65.93 Est GFR (CKD-EPI)NonAf 56.88 Random Glucose 86 Calcium 8.6 Total Bilirubin 0.2 AST 14 L ALT 24 Alkaline Phosphatase 63 Total Protein 5.9 L Albumin 2.8 L Urine Color Yellow Urine Appearance Clear Urine pH 6.0 Ur Specific Platter 1.002 L Urine Protein Negative Urine Glucose (UA) Negative Urine Ketones Negative Urine Blood Negative Urine Nitrite Negative Urine Bilirubin Negative Urine Urobilinogen 0.2 Ur Leukocyte Esterase Negative Syphilis Serology COVID-19 (DIXIE) 10/18/19 10:11 repeat bun pending Assessment: 10/18/19 10:11 opiate withdrawal ms gilbert is doing well with current methadone detox regiment Plan: methadone regiment ms gilbert aims at valium titrated up
--- NOTE | 2019-10-18 10:13 | PN ---
Psychiatric Progress Note Vital Signs: Vital Signs Period Temp Pulse Resp BP Sys/Sheth Pulse Ox Last 24 Hr 96.5 F-97.7 F 51-103 16-18 110-132/67-76 97-99 Date of Session: 10/18/19 Chief Complaint:: "I'm having anxiety. I need more valium." HPI: Patient admitted to for crack/cocaine, heroin, and nicotine dependence. Consultation ordered due to patient c/o anxiety and staff stating that patient has been irritable on the unit. ROS: Patient is ambulatory, alert +orientedX3 but mildly irritable. Current Medications: Active Medications Generic Name Dose Route Start Last Admin Trade Name Freq PRN Reason Stop Dose Admin Acetaminophen 650 mg 10/15/19 18:09 Tylenol - PO Q6H PRN PAIN LEVEL 4 - 6 Acetaminophen 650 mg 10/15/19 18:09 Tylenol - PO Q6H PRN FEVER Al Hydroxide/Mg Hydroxide 30 ml 10/15/19 18:09 Mylanta Oral Suspension - PO Q6H PRN DYSPEPSIA Bismuth Subsalicylate 524 mg 10/15/19 18:09 Pepto-Bismol - PO Q1H PRN DIARRHEA Diazepam 10 mg 10/15/19 19:07 10/18/19 06:00 Valium - PO 10/18/19 19:06 10 mg Q6H PRN Administration WITHDRAWAL(CONT SUBST) Eucalyptus/Menthol/Phenol/Sorbitol 1 each 10/15/19 18:09 Cepastat Lozenge - MM 10/21/19 18:11 Q4H PRN SORE THROAT Hydroxyzine Pamoate 50 mg 10/17/19 13:25 10/18/19 06:00 Vistaril - PO 50 mg Q4H PRN Administration ANXIETY Ibuprofen 400 mg 10/15/19 18:09 Motrin - PO Q6H PRN PAIN LEVEL 1 - 3 Magnesium Citrate 300 ml 10/15/19 18:09 Citroma - PO Q48H PRN CONSTIPATION Magnesium Hydroxide 30 ml 10/15/19 18:09 Milk Of Magnesia - PO PRN PRN CONSTIPATION Melatonin 5 mg 10/15/19 22:00 10/17/19 22:00 Melatonin PO 5 mg HS JANIS Administration Methadone HCl 5 mg 10/20/19 06:00 Dolophine - PO 10/20/19 06:01 ONCE@0600 ONE Methadone HCl 10 mg 10/19/19 10:00 Dolophine - PO 10/19/19 10:01 ONCE ONE Methocarbamol 500 mg 10/15/19 18:09 10/18/19 06:01 Robaxin - PO 10/21/19 18:11 500 mg Q6H PRN Administration MUSCLE SPASMS Nicotine 7 mg 10/16/19 10:00 10/17/19 10:23 Nicoderm Patch - TD Not Given DAILY JANIS Nicotine Polacrilex 2 mg 10/15/19 18:09 Nicorette Gum - BUC Q2H PRN NICOTINE REPLACEMENT RX Multivit/Folic Acid/Iron 1 tab 10/16/19 10:00 10/17/19 10:23 Vitamins (Sjr) - PO 1 tab DAILY JANIS Administration Thiamine HCl 100 mg 10/15/19 22:00 10/17/19 22:00 Vitamin B1 - PO 100 mg HS JANIS Administration Medication(s) Change(s): Yes. Will add Seroquel 50mg BID. Current Side Effect: No Lab tests ordered: No Lab tests reviewed: Yes Provider note:: Patient seen by Dr. Leigh. Dr. Leigh note read and appreciated. Patient reports worsening anxiety which is unresolved with vistaril. Patient given a one time dose of seroquel yesterday (10/17/19) due to irritability and anxiety. Patient asking marketing writer for additional valium doses. Underwriting Intern informed patient that additional valium doses will not ordered. Alternative medications discussed. Patient appears to be medication seeking for more benzodiazpines. Patient reports receiving seroquel in other detox/rehab facilities and when incarcerated. States that seroquel is effective when taken. Will order Seroquel 50mg BID. Benefits and side effects discussed. Verbal consent given. Total face to face time:: 25 Mental Status Exam - Mental Status Exam Alert and Oriented to: Time, Place, Person Cognitive Function: Good Patient Appearance: Disheveled Mood: Irritable Affect: Mood Congruent Patient Behavior: Fatigued Speech Pattern: Clear Voice Loudness: Normal Thought Process: Goal Oriented Hallucinations: Denies Suicidal Ideation: Denies Homicidal Ideation: Denies Insight/Judgement: Poor Sleep: Poorly Appetite: Fair Muscle strength/Tone: Normal Gait/Station: Normal Psychiatric Treatment Plan - Problem List (1) Opioid dependence with withdrawal Current Visit: Yes (2) Cocaine dependence Current Visit: Yes Qualifiers: Substance use status: uncomplicated Qualified Code(s): F14.20 - Cocaine dependence, uncomplicated (3) Nicotine dependence Current Visit: Yes Qualifiers: Nicotine product type: cigarettes Substance use status: in withdrawal Qualified Code(s): F17.213 - Nicotine dependence, cigarettes, with withdrawal (4) Drug-induced mood disorder Current Visit: Yes
[2019-10-18] MEDS: PRENATAL VITAMINS W/ FOLIC ACID TABLET (FP) PO SCH (10:16)
[2019-10-18] MEDS: NICOTINE 7 MG/24 HOURS TOPICAL PATCH TD SCH (10:16)
[2019-10-18] MEDS: QUEtiapine FUMARATE 50 MG TABLET PO SCH ×2 (11:04→22:13)
[2019-10-18] MEDS: MAG HYDROX/AL HYDROX/SIMETH 30 ML UNIT-DOSE CUP PO PRN (20:20)
[2019-10-18] MEDS: THIAMINE HCL 100 MG TABLET (FP) PO SCH (22:13)
[2019-10-18] MEDS: MELATONIN 5 MG TABLETS PO SCH (22:13)
[2019-10-19] MEDS: hydrOXYzine PAMOATE 50 MG CAPSULE (FP) PO PRN ×5 (06:00→22:28)
[2019-10-19] MEDS: METHOCARBAMOL 500 MG TABLET PO PRN ×4 (06:00→22:31)
--- NOTE | 2019-10-19 09:38 | PN ---
[facility] COWS - Scale Resting Pulse: 2= [place] 101-120 Sweatin= No chills or Flushing Restless Observation: 0= Sits Still Pupil Size: 0= Normal to Room Light Bone or Joint Aches: 0= None Runny Nose/ Eye Tearin= None GI Upset > 30mins: 0= None Tremor Observation of Outstretched Hands: 0= None Yawning Observation: 0= None Anxiety or Irritability: 2=Irritable/Anxious Goose Flesh Skin: 0=Smooth Skin COWS Score: 4 [facility] Progress Note (SOAP) Subjective: 39 years old female was admitted on 10/15/19 for opiate withdrawal sx management treating with methadone detox regiment ms gilbert continues asking more valium that has been discontinued "why you take valium away from me" ms gilbert said it out loud a male peer stated "she did that to me too" encourage ms renee focus on medication assisted treatment program ms gilbert is sad about not able to get valium and suboxone in rehab upon aftercare admission met with counselor to discuss aftercare ms gilbert demands to have conversation with aftercare facility about "what they can give me" treatment team will arrange ms gilbert to have phone conversation with aftercare facility Objective: 10/19/19 09:38 Vital Signs - 24 hr 10/18/19 10/18/19 10/18/19 12:18 13:01 16:58 Temperature 98.2 F 97.3 F L Pulse Rate 113 H 84 93 H Respiratory 20 16 16 Rate Blood Pressure 121/78 121/73 137/80 O2 Sat by Pulse 100 Oximetry (%) 10/18/19 10/19/19 10/19/19 21:31 05:54 08:57 Temperature 97.8 F 96.8 F L 97.3 F L Pulse Rate 103 H 74 106 H Respiratory 16 16 16 Rate Blood Pressure 125/76 119/70 118/77 O2 Sat by Pulse 96 98 Oximetry (%) Laboratory Tests 10/15/19 10/16/19 10/16/19 19:20 07:25 07:25 WBC 3.8 L RBC 3.95 Hgb 12.0 Hct 35.8 MCV 90.8 MCH 30.3 MCHC 33.4 RDW 13.2 Plt Count 306 D MPV 8.0 Sodium Potassium Chloride Carbon Dioxide Anion Gap BUN Creatinine Est GFR (CKD-EPI)AfAm Est GFR (CKD-EPI)NonAf Random Glucose Calcium Total Bilirubin AST ALT Alkaline Phosphatase Total Protein Albumin Urine Color Urine Appearance Urine pH Ur Specific [place] Urine Protein Urine Glucose (UA) Urine Ketones Urine Blood Urine Nitrite Urine Bilirubin Urine Urobilinogen Ur Leukocyte Esterase Syphilis Serology Non-reactive COVID-19 (DIXIE) Not detected 10/16/19 10/17/19 07:25 15:29 WBC RBC Hgb Hct MCV MCH MCHC RDW Plt Count MPV Sodium 139 Potassium 4.2 Chloride 106 Carbon Dioxide 27 Anion Gap 6 L BUN 28.8 H Creatinine 1.2 Est GFR (CKD-EPI)AfAm 65.93 Est GFR (CKD-EPI)NonAf 56.88 Random Glucose 86 Calcium 8.6 Total Bilirubin 0.2 AST 14 L ALT 24 Alkaline Phosphatase 63 Total Protein 5.9 L Albumin 2.8 L Urine Color Yellow Urine Appearance Clear Urine pH 6.0 Ur Specific [place] 1.002 L Urine Protein Negative Urine Glucose (UA) Negative Urine Ketones Negative Urine Blood Negative Urine Nitrite Negative Urine Bilirubin Negative Urine Urobilinogen 0.2 Ur Leukocyte Esterase Negative Syphilis Serology COVID-19 (DIXIE) health teaching on substance abuse related renal insults Assessment: 10/19/19 09:39 opiate withdrawal Plan: methadone regiment
[2019-10-19] MEDS ORDERED: METHADONE HCL 10 MG TABLET (FOR DETOX USE ONLY) PO ONE (10:00)
[2019-10-19] MEDS: MAG HYDROX/AL HYDROX/SIMETH 30 ML UNIT-DOSE CUP PO PRN (10:23)
[2019-10-19] MEDS: QUEtiapine FUMARATE 50 MG TABLET PO SCH ×2 (10:24→22:27)
[2019-10-19] MEDS: NICOTINE 7 MG/24 HOURS TOPICAL PATCH TD SCH (10:25)
[2019-10-19] MEDS: PRENATAL VITAMINS W/ FOLIC ACID TABLET (FP) PO SCH (10:25)
[2019-10-19] MEDS: FAMOTIDINE 20 MG TABLET PO SCH ×2 (11:49→22:28)
[2019-10-19] MEDS ORDERED: MASKS NR ONE (14:31)
[2019-10-19] MEDS ORDERED: hydrOXYzine PAMOATE 25 MG CAPSULE (FP) PO ONE (17:15)
[2019-10-19] MEDS: THIAMINE HCL 100 MG TABLET (FP) PO SCH (22:27)
[2019-10-19] MEDS: MELATONIN 5 MG TABLETS PO SCH (22:27)
[2019-10-20] MEDS ORDERED: METHADONE HCL 5 MG TABLET (FOR DETOX USE ONLY) PO ONE (06:00)
[2019-10-20] MEDS: hydrOXYzine PAMOATE 50 MG CAPSULE (FP) PO PRN (06:04)
[2019-10-20] MEDS: METHOCARBAMOL 500 MG TABLET PO PRN (06:06)
[2019-10-20] MEDS: FAMOTIDINE 20 MG TABLET PO SCH (09:28)
[2019-10-20] MEDS: QUEtiapine FUMARATE 50 MG TABLET PO SCH (09:28)
[2019-10-20] MEDS: PRENATAL VITAMINS W/ FOLIC ACID TABLET (FP) PO SCH (09:28)
[2019-10-20] MEDS: NICOTINE 7 MG/24 HOURS TOPICAL PATCH TD SCH (09:28)
[2019-10-20 09:35] VITALS: BP 118/72; PULSE 110; TEMP 97.3
--- NOTE | 2019-10-20 09:55 | DS ---
[facility] Detox Discharge Summary Admission Date: 10/15/19 Discharge Date: 10/20/19 - History Present History: Opioid Dependence Additional Comments: 39 years old female was admitted on 10/15/19 for opiate withdrawal sx management treated with methadone detox regimen seen by psychiatrist no medical intervention ms gilbert has completed methadone regiment and is tolerated well General Appearance: Yes: good hygiene, no Distress, Thin, not Sweating, mild Anxious HEENTM: Yes: EOMI, Hearing grossly Normal, Normal ENT Inspection, Normocephalic, Normal Voice, AIYANA, Pharynx Normal, Tm's normal Respiratory: Yes: Chest Non-Tender, Lungs Clear, Normal Breath Sounds, No Respiratory Distress, No Accessory Muscle Use Neck: Yes: Within Normal Limits Breast: Yes: Breast Exam Deferred Cardiology: Yes: Regular Rhythm, Regular Rate Abdominal: Yes: Normal Bowel Sounds, Non Tender, Flat, Soft Genitourinary: Yes: Within Normal Limits Back: Yes: Normal Inspection Musculoskeletal: Yes: full range of Motion, Gait Steady, Pelvis Stable Extremities: Yes: Normal Capillary Refill, Normal Inspection, Normal Range of Motion, Non-Tender Neurological: Yes: training technician II-XII NML intact, Fully Oriented, Alert, Motor Strength 5/5, Normal Response, Depressed Affect Integumentary: Yes: Normal Color, Warm, Pertinent Past History: time for discharge 35 minutes vladimir requests valium daily throughout the detox stay thelma requests valium dosage to be increased throughout the day in detox treatment team met with ms gilbert daily to discuss risks of benzo addiction and respiratory suppression [facility] [employer] ms gilbert around 11 am ms glibert requests to stay in detox longer for higher dose of valium - Physical Exam Results Vital Signs: Vital Signs Temperature 97.3 F L 10/20/19 08:47 Pulse Rate 110 H 10/20/19 08:47 Respiratory Rate 18 10/20/19 08:47 Blood Pressure 118/72 10/20/19 08:47 O2 Sat by Pulse Oximetry (%) 96 10/20/19 06:39 Pertinent Admission Physical Exam Findings: opiate withdrawal Vital Signs - 24 hr 10/19/19 10/19/19 10/19/19 12:51 16:31 20:40 Temperature 97.8 F 98.1 F 98.1 F Pulse Rate 96 H 90 89 Respiratory 16 18 18 Rate Blood Pressure 119/72 112/70 115/69 O2 Sat by Pulse 100 99 Oximetry (%) 10/20/19 10/20/19 06:39 08:47 Temperature 97.6 F 97.3 F L Pulse Rate 65 110 H Respiratory 18 18 Rate Blood Pressure 116/66 118/72 O2 Sat by Pulse 96 Oximetry (%) Laboratory Tests 10/15/19 10/15/19 10/16/19 18:10 19:20 07:25 WBC RBC Hgb Hct MCV MCH MCHC RDW Plt Count MPV Sodium Potassium Chloride Carbon Dioxide Anion Gap BUN Creatinine Est GFR (CKD-EPI)AfAm Est GFR (CKD-EPI)NonAf Random Glucose Calcium Total Bilirubin AST ALT Alkaline Phosphatase Total Protein Albumin Urine Color Urine Appearance Urine pH Ur Specific [place] Urine Protein Urine Glucose (UA) Urine Ketones Urine Blood Urine Nitrite Urine Bilirubin Urine Urobilinogen Ur Leukocyte Esterase POC Urine HCG, Qual Negative Syphilis Serology Non-reactive COVID-19 (DIXIE) Not detected 10/16/19 10/16/19 10/17/19 07:25 07:25 15:29 WBC 3.8 L RBC 3.95 Hgb 12.0 Hct 35.8 MCV 90.8 MCH 30.3 MCHC 33.4 RDW 13.2 Plt Count 306 D MPV 8.0 Sodium 139 Potassium 4.2 Chloride 106 Carbon Dioxide 27 Anion Gap 6 L BUN 28.8 H Creatinine 1.2 Est GFR (CKD-EPI)AfAm 65.93 Est GFR (CKD-EPI)NonAf 56.88 Random Glucose 86 Calcium 8.6 Total Bilirubin 0.2 AST 14 L ALT 24 Alkaline Phosphatase 63 Total Protein 5.9 L Albumin 2.8 L Urine Color Yellow Urine Appearance Clear Urine pH 6.0 Ur Specific [place] 1.002 L Urine Protein Negative Urine Glucose (UA) Negative Urine Ketones Negative Urine Blood Negative Urine Nitrite Negative Urine Bilirubin Negative Urine Urobilinogen 0.2 Ur Leukocyte Esterase Negative POC Urine HCG, Qual Syphilis Serology COVID-19 (DIXIE) 10/19/19 07:45 WBC RBC Hgb Hct MCV MCH MCHC RDW Plt Count MPV Sodium Potassium Chloride Carbon Dioxide Anion Gap BUN 17.0 Creatinine Est GFR (CKD-EPI)AfAm Est GFR (CKD-EPI)NonAf Random Glucose Calcium Total Bilirubin AST ALT Alkaline Phosphatase Total Protein Albumin Urine Color Urine Appearance Urine pH Ur Specific [place] Urine Protein Urine Glucose (UA) Urine Ketones Urine Blood Urine Nitrite Urine Bilirubin Urine Urobilinogen Ur Leukocyte Esterase POC Urine HCG, Qual Syphilis Serology COVID-19 (DIXIE) bun corrected from oral hydration - Treatment Hospital Course: Detox Protocol Followed, Detoxed Safely, Responded well, Discharged Condition Good, Rehab Referral Accepted Patient has Accepted a Rehab Referral to: [facility] - Medication Discharge Medications: Ambulatory Orders Naloxone HCl [Narcan] 4 mg NS ASDIR PRN #1 spray 10/17/19 - Diagnosis (1) Underweight Current Visit: Yes Status: Chronic (2) Opioid dependence with withdrawal Current Visit: Yes Status: Acute (3) Nicotine dependence Current Visit: Yes Status: Acute Qualifiers: Nicotine product type: cigarettes Substance use status: in withdrawal Qualified Code(s): F17.213 - Nicotine dependence, cigarettes, with withdrawal (4) HIV disease Current Visit: Yes Status: Chronic - AMA Did Patient Leave Against Medical Advice: No COWS (PN) - Opiate Withdrawal Resting Pulse: 2= [place] 101-120 Sweatin= No chills or Flushing Restless Observation: 0= Sits Still Pupil Size: 0= Normal to Room Light Bone or Joint Aches: 0= None Runny Nose/ Eye Tearin= None GI Upset > 30mins: 0= None Tremor Observation of Outstretched Hands: 0= None Yawning Observation: 0= None Anxiety or Irritability: 0= None Goose Flesh Skin: 0=Smooth Skin COWS Score: 2
== END 2019-10-20 11:22 | disposition other institution (70) | DRG 773 ==
LOC: YASAS 15:22 → Y3N 18:21
PROVIDERS: ADMIT Allergy & Immunology; ATTEND Allergy & Immunology
PROC: HZ2ZZZZ Detoxification Services for Substance Abuse Treatment (ICD-10-PCS; principal; 2019-10-15)
DX: F11.23 Opioid dependence with withdrawal (principal); F14.20 Cocaine dependence, uncomplicated; F17.210 Nicotine dependence, cigarettes, uncomplicated; F19.24 Other psychoactive substance dependence with psychoactive substance-induced mood disorder; F41.9 Anxiety disorder, unspecified; B20 Human immunodeficiency virus [HIV] disease; G47.00 Insomnia, unspecified; N28.9 Disorder of kidney and ureter, unspecified; R63.6 Underweight; Z68.1 Body mass index [BMI] 19.9 or less, adult; Z56.0 Unemployment, unspecified; Z59.0 Homelessness
CPT/HCPCS: 36415; 80053; 81003; 81025; 84520; 85027; 86780; 93005; 93010; J0735; U0003

== ENCOUNTER 2024-10-03 02:50 | Inpatient (IN) | payer SELFPAY ==
[2024-10-03 03:00] VITALS: BMI 25.7
[2024-10-03] MEDS ORDERED: BISMUTH SUBSALICYLATE 524 MG/30 ML PO PRN (03:14)
[2024-10-03] MEDS ORDERED: guaiFENesin 600 MG TABLET.ER (FP) PO PRN (03:14)
[2024-10-03] MEDS ORDERED: DICYCLOMINE HCL 10 MG CAPSULE PO PRN (03:14)
[2024-10-03] MEDS ORDERED: ONDANSETRON *ODT* 4 MG TABLET SL PRN (03:14)
[2024-10-03] MEDS ORDERED: NICOTINE POLACRILEX 2 MG LOZENGE BC PRN (03:14)
[2024-10-03] MEDS ORDERED: IBUPROFEN 600 MG TABLET (FP) PO PRN (03:14)
[2024-10-03] MEDS ORDERED: MAGNESIUM HYDROX 2400MG/30ML ORAL SUSPENSION 30 ML CUP PO PRN (03:14)
[2024-10-03] MEDS ORDERED: NALOXONE (NARCAN) HCL 4 MG/0.1 ML SPRAY NS PRN (03:14)
[2024-10-03] MEDS ORDERED: NICOTINE POLACRILEX 2 MG GUM BUC PRN (03:14)
[2024-10-03] MEDS ORDERED: BENZONATATE 200 MG CAPSULE PO PRN (03:14)
[2024-10-03] MEDS ORDERED: IBUPROFEN 400 MG TABLET (FP) PO PRN (03:14)
[2024-10-03] MEDS ORDERED: BENZOCAINE/MENTHOL (CHLORASEPTIC ) LOZENGE MM PRN (03:14)
[2024-10-03] MEDS ORDERED: ACETAMINOPHEN 325 MG TABLET (FP) PO PRN (03:14)
[2024-10-03] MEDS ORDERED: MAG HYDROX/AL HYDROX/SIMETH 30 ML UNIT-DOSE CUP PO PRN (03:14)
[2024-10-03] MEDS ORDERED: POLYETHYLENE GLYCOL (HEALTHYLAX) 3350 17 GM PACKET PO PRN (03:14)
[2024-10-03] MEDS ORDERED: LOPERAMIDE HCL 2 MG CAPSULE PO PRN (03:14)
[2024-10-03] MEDS ORDERED: METOPROLOL TARTRATE 25 MG TABLET (FP) ONE (03:35)
[2024-10-03] MEDS: METOPROLOL TARTRATE 50 MG TABLET (FP) PO ONE (03:52)
[2024-10-03] MEDS: hydrOXYzine PAMOATE 25 MG CAPSULE (FP) PO PRN ×2 (03:54→17:44)
[2024-10-03] MEDS: METHOCARBAMOL 500 MG TABLET PO PRN (03:54)
[2024-10-03] MEDS ORDERED: METHOCARBAMOL 500 MG TABLET ONE (03:58)
[2024-10-03] MEDS ORDERED: hydrOXYzine PAMOATE 25 MG CAPSULE (FP) PO ONE (03:59)
[2024-10-03] MEDS: PRENATAL VITAMINS W/ FOLIC ACID TABLET (FP) PO SCH (10:14)
[2024-10-03] MEDS ORDERED: MELATONIN 5 MG TABLETS PO SCH (22:00)
[2024-10-03] MEDS: MELATONIN 5 MG TABLETS PO SCH (22:27)
[2024-10-03] MEDS: THIAMINE 100 MG TABLET PO SCH (22:27)
[2024-10-04 12:33] LABS: MCHC 32.0 g/dl (32.2-35.5); MEAN CELL VOLUME 93.9 fl (79.4-94.8); MEAN PLT VOLUME 9.4 fl (9.4-12.3); RDW 11.7 % (12.2-17.1)
[2024-10-04 13:35] LABS: GLUCOSE,RANDOM 71.0 mg/dL (74-106); TOT PROT 6.3 g/dl (6.4-8.2)
[2024-10-04 13:36] LABS: CO2 23.0 mmol/L (21-32)
[2024-10-04 13:38] LABS: ALK PHOS 62.0 U/L (40-150)
[2024-10-04 13:41] LABS: CREATININE 1.25 mg/dL (0.55-1.3); SGOT/AST 16.0 U/L (5-34); SGPT/ALT 14.0 U/L (0-55)
[2024-10-05 07:10] VITALS: PULSE 60; RESP 16
[2024-10-05 09:36] VITALS: BP 112/75; TEMP 96.9
== END 2024-10-05 10:10 | disposition home or self-care (01) | DRG 774 ==
LOC: YASAS 02:50 → Y3N 03:59
PROVIDERS: ADMIT Psychiatry & Neurology Pain Medicine; ATTEND Allergy & Immunology
PROC: HZ2ZZZZ Detoxification Services for Substance Abuse Treatment (ICD-10-PCS; principal; 2024-10-03)
DX: F10.20 Alcohol dependence, uncomplicated (principal); F10.220 Alcohol dependence with intoxication, uncomplicated; F14.20 Cocaine dependence, uncomplicated; F17.210 Nicotine dependence, cigarettes, uncomplicated; F10.282 Alcohol dependence with alcohol-induced sleep disorder; F10.280 Alcohol dependence with alcohol-induced anxiety disorder; F10.24 Alcohol dependence with alcohol-induced mood disorder
CPT/HCPCS: 36415; 80053; 80307; 85027; 86780; 93005; 93010